=== PATIENT | male | born 1965 | race Caucasian/White ===

== ENCOUNTER 2019-04-23 22:59 | Emergency (ER) | payer OTHER, SELFPAY ==
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
[2019-04-23 23:13] VITALS: BP 104/93; PULSE 100; RESP 16; TEMP 36.3; O2SAT 96
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
[2019-04-23] MEDS: DIAZEPAM 5 MG TABLET PO (23:20)
[2019-04-24 00:20] VITALS: BP 134/89; PULSE 93; RESP 18; TEMP 36.2; O2SAT 98
== END 2019-04-24 00:23 | disposition home or self-care (01) ==
PROVIDERS: Emergency Provider Nurse Practitioner; PCP Chiropractor
DX: S13.4XXA Sprain of ligaments of cervical spine, initial encounter (principal); M25.531 Pain in right wrist; M25.532 Pain in left wrist; R07.81 Pleurodynia; G89.29 Other chronic pain; J45.909 Unspecified asthma, uncomplicated; J44.9 Chronic obstructive pulmonary disease, unspecified; K21.9 Gastro-esophageal reflux disease without esophagitis; Z87.442 Personal history of urinary calculi; G47.30 Sleep apnea, unspecified; V49.40XA Driver injured in collision with unspecified motor vehicles in traffic accident, initial encounter
CPT/HCPCS: 71045; 71101; 72125; 73110; 99284; A9270

== ENCOUNTER 2019-05-01 19:55 | Emergency (ER) | payer MEDICARE, MEDICAID, SELFPAY ==
[2019-05-01] VITALS (8 sets, daily range): BP systolic 114–155; BP diastolic 73–95; PULSE 88–101; RESP 14–18; TEMP 35.8; O2SAT 93–97
--- NOTE | ~2019-05-01 | XR_ITS ---
EXAMINATION: XR chest 1V portable DATE: 05/01/2019 21:56 INDICATION: Cough and shortness of breath. TECHNIQUE: frontal view of the chest was obtained. COMPARISON: Chest radiograph dated 04/23/2019 FINDINGS: The lungs remain clear with no focal airspace opacities, pulmonary edema, pleural effusion or pneumot horax. The cardiomediastinal silhouette is normal. Visualized bones and soft tissues are unremarkable . IMPRESSION: 1. No acute cardiopulmonary disease. Reviewed, dictated and finalized at location A. AUTHOR
--- NOTE | 2019-05-01 21:11 | ECG_ITS ---
Measurements Intervals [place] Rate: 97 P: 44 [place]: 144 QRS: -9 QRSD: 93 T: 43 QT: 375 QTc: 478 Interpretive Statements SINUS RHYTHM ATRIAL PREMATURE COMPLEXES BORDERLINE T WAVE ABNORMALITY- INFERIOR LEADS BORDERLINE ECG Electronically Signed On 05-02-2019 6:58:55 RETAIL SALES REPRESENTATIVE by Laith Suazo D.O.
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
[2019-05-01 21:43] LABS: Basophils Absolute Auto 0.1 K/mm3 (0.0-0.1); Basophils Percent Auto 0.7 % (0.2-1.2); Eosinophils Absolute Auto 0.5 K/mm3 (0-0.3); Hematocrit 45.7 % (42.0-52.0); Hemoglobin 15.4 g/dL (14.0-18.0); Immature Granulocyte Absolute 0.11 K/mm3 (0.00-0.031); Immature Granulocyte Percent A 0.7 % (0-0.5); Lymphocytes Absolute Auto 1.22 K/mm3 (0.9-3.2); Mean Corpuscular HGB Conc 33.7 g/dl (32-36); Mean Corpuscular Hemoglobin 29.3 pg (26-34); Mean Platelet Volume 11.4 fl (7.4-10.4); Monocytes Absolute Auto 1.2 K/mm3 (0.1-0.6); Monocytes Percent Auto 7.5 % (2.6-8.5); Neutrophils Absolute Auto 12.3 K/mm3 (1.3-6.7); Neutrophils Percent Auto 80.1 % (45.5-73.1); Platelet Count Result 250 k/mm3 (150-375); Red Blood Count 5.25 M/mm3 (4.6-6.20); Red Cell Distribution Width 13.5 % (11.5-14.5); White Blood Count 15.3 K/mm3 (4.5-10.0)
[2019-05-01] MEDS: METOCLOPRAMIDE HCL INJ 10 MG/2 ML VIAL IV PUSH (21:44)
[2019-05-01] MEDS: HYDROMORPHONE HCL 1 MG/ML INJ 0.5 MG IV PUSH (21:45)
[2019-05-01] MEDS: SODIUM CHLORIDE 0.9% IV 1,000 ML 999 ML IV CONT (21:47)
[2019-05-01 21:56] LABS: Alanine Aminotransferase 35 U/L (4-50); Albumin Level 4.2 g/dL (3.5-5.1); Alkaline Phosphatase 82 U/L (38-126); Aspartate Amino Transferase 24 U/L (17-59); Bilirubin,Total 0.4 mg/dL (0.2-1.3); Blood Urea Nitrogen 10 mg/dL (9-20); Calcium 9.1 mg/dL (8.4-10.2); Carbon Dioxide 27 mmol/L (22-30); Chloride 102 mmol/L (98-107); Estimated CRCL calculation 114 ml/min; Estimated Glomerular Filt Rate > 60; Glucose 106 mg/dL (75-110); Potassium 3.7 mmol/L (3.4-5.0); Sodium 143 mmol/L (137-145)
[2019-05-01 22:32] LABS: Alveolar/Arterial O2 Gradient 49.1 mmHg; Base Excess ABG -0.8 mEq/l (+/-2.0); Fractional Inspired Oxygen 21 %; HCO3 ABG 22.7 mEq/l (22.0-26.0); Oxygen Content ABG 19.9 %vol (16.0-22.0); Oxygen Saturation ABG 91.8 % (95.0-100.0); Oxyhemoglobin 90.9 % THb (90.0-100.0); PCO2 ABG 34.5 mmHg (35.0-45.0); PO2 ABG 59.3 mmHg (80.0-100.0); PO2 FiO2 Ratio Arterial Blood 2.82 %; Total Hemoglobin 15.6 g/dL (12.0-18.0); pH ABG 7.436 (7.350-7.450)
[2019-05-01 22:34] LABS: Device ROOM AIR; Modified Allen's Test Pass; Site Drawn LEFT RADIAL
[2019-05-01] MEDS: methylPREDNISolone SOD SUCC 125 MG VIAL IV PUSH (22:39)
[2019-05-01] MEDS: IPRATROPIUM BR 0.02% INH SOLN 0.5 MG/2.5 ML VIAL INHALATION (22:41)
[2019-05-01] MEDS: ALBUTEROL SULFATE NEB 2.5 MG/0.5 ML INH 5 MG INHALATION ×2 (22:41→23:38)
[2019-05-02 00:19] VITALS: BP 142/99; PULSE 92; RESP 18; O2SAT 100
== END 2019-05-02 00:21 | disposition home or self-care (01) ==
PROVIDERS: Emergency Provider Emergency Medicine; PCP Chiropractor
DX: J44.1 Chronic obstructive pulmonary disease with (acute) exacerbation (principal); M54.9 Dorsalgia, unspecified; M54.2 Cervicalgia; G89.29 Other chronic pain; K21.9 Gastro-esophageal reflux disease without esophagitis; Z87.442 Personal history of urinary calculi; G47.30 Sleep apnea, unspecified
CPT/HCPCS: 36415; 36600; 71045; 80053; 82805; 85025; 87804; 93005; 94640; 96361; 96374; 96375; 99284; J1170; J1200; J2765; J2930; J7030

== ENCOUNTER 2019-05-15 12:50 | Outpatient (CLI) | payer MEDICARE, MEDICAID, SELFPAY ==
--- NOTE | ~2019-05-15 | MR_ITS ---
EXAMINATION: MR lumbar spine wo con DATE: 05/15/2019 13:53 INDICATION: Lumbar radiculopathy. TECHNIQUE: Magnetic resonance imaging (MRI) of the lumbar spine was performed without intravenous con trast. Sequences included sagittal T2-weighted FSE, sagittal T2-weighted FS FSE, sagittal T1-weighted FSE, and axial T2-weighted FSE. COMPARISON: Lumbar spine MRI 01/19/2018 FINDINGS: There is 10 degrees levoscoliosis of lumbar spine. There is severely decreased disc height at L2-L3 with chronic height loss of L2 inferior endplate and L3 superior endplate. The distal spinal cord signal intensity is normal. The conus medullaris is at L1. The following disc levels are specif ically discussed: L1-L2: There is a left foraminal protrusion. There is mild bilateral facet joint osteoarthritis. Ther e is mild left neural foraminal stenosis. There is no central canal stenosis. L2-L3: The disc is bulging and has an annular fissure. There is mild bilateral facet joint osteoarthr itis. There is mild right and moderate left neural foraminal stenosis. There is mild central canal st enosis. L3-L4: The disc is mildly bulging. There is mild bilateral facet joint osteoarthritis. There is mild bilateral neural foraminal stenosis. There is no central canal stenosis. L4-L5: The disc is mildly bulging. There is mild bilateral facet joint osteoarthritis. There is mild bilateral neural foraminal stenosis. There is no central canal stenosis. L5-S1: There is a central protrusion. There is mild bilateral facet joint osteoarthritis. There is no neural foraminal stenosis. There is no central canal stenosis. IMPRESSION: 1. Severe spondylosis at L2-L3, stable from 01/19/2018. 2. Lumbar levoscoliosis. Reviewed, dictated and finalized at location A. NG STONE INSTALLER
--- NOTE | ~2019-05-15 | MR_ITS ---
EXAMINATION: MR cervical spine wo con EXAM DATE: 05/15/2019 13:53 INDICATION: Cervical spondylosis. TECHNIQUE: Multi-sequential, multiplanar MR images of the cervical spine were obtained without contra st. Axial T2, axial T2 MERGE sequence. Sagittal T1, T2, T2 fat saturation images also obtained. Th ere is no prior study for comparison. FINDINGS: There is moderate to severe disc disease at C5-6 and C6-7, moderate at C7-T1, mild at C3 4 -5. The spinal cord signal intensity and intrinsic morphology is normal. Cervicomedullary junction is normal in appearance. The vertebral bodies are aligned in the AP dimension. Paraspinal soft tissue i s unremarkable. Level by level evaluation: C2-C3: Disc does not extend beyond the endplate margin. Uncovertebral joint arthropathy: Mild left. Facet joint arthropathy: Mild to moderate right, mild left. Neural foraminal stenosis: No stenosis. Central canal stenosis: No stenosis. C3-C4: There is a minimal diffuse disc bulge. Uncovertebral joint arthropathy: Mild to moderate bilateral. Facet joint arthropathy: Moderate bilateral. Neural foraminal stenosis: Moderate right, mild to moderate left. Central canal stenosis: No stenosis. C4-C5: There is a mild diffuse disc bulge. Uncovertebral joint arthropathy: Mild bilateral. Facet joint arthropathy: Mild to moderate bilateral. Neural foraminal stenosis: No stenosis. Central canal stenosis: No stenosis. C5-C6: There is a mild diffuse disc bulge. Uncovertebral joint arthropathy: Moderate bilateral. Facet joint arthropathy: Mild to moderate. Neural foraminal stenosis: Moderate to severe bilateral. Central canal stenosis: Mild. C6-C7: There is a mild diffuse disc bulge. Uncovertebral joint arthropathy: Moderate bilateral. Facet joint arthropathy: Mild to moderate bilateral. Neural foraminal stenosis: Moderate left, mild right. Central canal stenosis: Mild. C7-T1: There is a mild diffuse disc bulge. Uncovertebral joint arthropathy: Mild bilateral. Facet joint arthropathy: Mild to moderate right, mild left. Neural foraminal stenosis: Mild to moderate right, no left. Central canal stenosis: Mild. Only minimal progression in spondylosis compared to prior study. IMPRESSION: 1. Overall moderate lower cervical spondylosis as above. Reviewed, dictated and finalized at location A. ERS' COMPENSATION CLAIMS SUPERVISOR
== END 2019-05-15 12:51 | disposition home or self-care (01) ==
PROVIDERS: PCP Chiropractor; Visit Provider Pain Medicine Pain Medicine
DX: M47.26 Other spondylosis with radiculopathy, lumbar region (principal); M41.86 Other forms of scoliosis, lumbar region; M47.812 Spondylosis without myelopathy or radiculopathy, cervical region
CPT/HCPCS: 72141; 72148

== ENCOUNTER 2019-09-20 20:29 | Emergency (ER) | payer MEDICARE, MEDICAID, SELFPAY ==
[2019-09-20 20:29] VITALS: BP 134/97; PULSE 78; RESP 18; TEMP 36.9; O2SAT 99
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
--- NOTE | 2019-09-20 20:48 | ECG_ITS ---
Measurements Intervals [place] Rate: 76 P: 33 [place]: 155 QRS: -12 QRSD: 93 T: 16 QT: 407 QTc: 459 Interpretive Statements SINUS RHYTHM BORDERLINE T WAVE ABNORMALITY- INFERIOR LEADS BORDERLINE ECG Electronically Signed On 09-21-2019 7:53:09 CDT by Laith Suazo D.O.
[2019-09-20] MEDS: ONDANSETRON INJ 4 MG/2 ML VIAL IV PUSH (20:58)
[2019-09-20] MEDS: SODIUM CHLORIDE 0.9% IV 1,000 ML 999 ML IV CONT (20:59)
[2019-09-20 21:07] LABS: Basophils Absolute Auto 0.1 K/mm3 (0.0-0.1); Basophils Percent Auto 0.5 % (0.2-1.2); Eosinophils Absolute Auto 0.2 K/mm3 (0-0.3); Eosinophils Percent Auto 1.7 % (0-4.4); Hematocrit 50.3 % (42.0-52.0); Hemoglobin 16.9 g/dL (14.0-18.0); Immature Granulocyte Absolute 0.09 K/mm3 (0.00-0.031); Immature Granulocyte Percent A 0.8 % (0-0.5); Lymphocytes Absolute Auto 2.19 K/mm3 (0.9-3.2); Lymphocytes Percent Auto 19.9 % (18.3-44.2); Mean Corpuscular HGB Conc 33.6 g/dl (32-36); Mean Corpuscular Hemoglobin 29.5 pg (26-34); Mean Corpuscular Volume 87.8 fl (80-100); Monocytes Percent Auto 9.4 % (2.6-8.5); Neutrophils Absolute Auto 7.4 K/mm3 (1.3-6.7); Neutrophils Percent Auto 67.7 % (45.5-73.1); Platelet Count Result 275 k/mm3 (150-375); Red Blood Count 5.73 M/mm3 (4.6-6.20); Red Cell Distribution Width 13.6 % (11.5-14.5)
[2019-09-20 21:17] LABS: Prothrombin Time 12.5 Seconds (11.1-14.7)
[2019-09-20 21:18] LABS: Partial Thromboplastin Time 28.2 SECONDS (22.3-36.8)
[2019-09-20 21:20] LABS: Alanine Aminotransferase 32 U/L (4-50); Albumin Level 4.4 g/dL (3.5-5.1); Alkaline Phosphatase 73 U/L (38-126); Aspartate Amino Transferase 25 U/L (17-59); Bilirubin,Total 0.5 mg/dL (0.2-1.3); Blood Urea Nitrogen 12 mg/dL (9-20); Calcium 9.1 mg/dL (8.4-10.2); Carbon Dioxide 32 mmol/L (22-30); Chloride 101 mmol/L (98-107); Estimated CRCL calculation 104 ml/min; Estimated Glomerular Filt Rate > 60; Glucose 117 mg/dL (75-110); Potassium 3.5 mmol/L (3.4-5.0); Sodium 139 mmol/L (137-145)
[2019-09-20] MEDS: CYCLOBENZAPRINE HCL 10 MG TABLET PO (22:05)
[2019-09-20 22:21] VITALS: BP 130/76; PULSE 58; RESP 18; O2SAT 98
[2019-09-20 22:33] VITALS: BP 134/81; PULSE 58; RESP 16; TEMP 36.9; O2SAT 98
== END 2019-09-20 22:34 | disposition home or self-care (01) ==
PROVIDERS: Emergency Provider Nurse Practitioner Family; PCP Chiropractor
DX: G43.009 Migraine without aura, not intractable, without status migrainosus (principal); G44.209 Tension-type headache, unspecified, not intractable; M54.2 Cervicalgia; G89.29 Other chronic pain; K21.9 Gastro-esophageal reflux disease without esophagitis; J44.9 Chronic obstructive pulmonary disease, unspecified; Z87.442 Personal history of urinary calculi; G47.30 Sleep apnea, unspecified; R94.31 Abnormal electrocardiogram [ECG] [EKG]; R03.0 Elevated blood-pressure reading, without diagnosis of hypertension
CPT/HCPCS: 36415; 80053; 85025; 85610; 85730; 93005; 96361; 96365; 96375; 99284; A9270; J0131; J1200; J2405; J7030

== ENCOUNTER 2020-03-27 13:24 | Emergency (ER) | payer MEDICARE, MEDICAID, SELFPAY ==
--- NOTE | ~2020-03-27 | CT_ITS ---
EXAMINATION: CT brain wo con INDICATION: Generalized headache, hypertension COMPARISON: 05/15/2017 TECHNIQUE: Standard unenhanced head CT. The dose-length product (DLP) was 681.00 mGy-cm. The mA was a djusted according to patient size. Iterative reconstruction technique was employed. FINDINGS: There is no intracranial hemorrhage, acute infarction, or abnormal mass lesion. The ventric les are normal. There is no abnormal mass effect or midline shift. The torres-white matter differentiat ion is normal. The basal cisterns are patent. The orbits are normal. There is mild mucosal thickening of the paranasal sinuses. IMPRESSION: 1. No acute intracranial abnormality. Reviewed, dictated and finalized at location A. OUTPATIENT SURGERY
[2020-03-27 13:43] VITALS: BP 161/118; PULSE 87; RESP 16; TEMP 36.1; O2SAT 99
--- NOTE | 2020-03-27 15:08 | ED.HA ---
HPI - Headache General Chief Complaint: Headache Stated Complaint: ELEVATED BP 160/111 RODRIGUEZ Time Seen by Provider: 03/27/20 14:52 Source: patient Mode of arrival: ambulatory Limitations: no limitations History of Present Illness HPI Narrative: Patient is a 54-year-old male who presents complaining of headache, chest tightness and elevated blood pressure. Patient reports blood pressure has been elevated on last week with an average reading of 140/110. He denies a history of hypertension is not on blood pressure medicine at this time. He denies shortness of breath. He reports a history of migraines and states that he has had headaches for the past 6 years. He reports they never fully go away, however this last headache has increased over the past week. MD elicited complaint: headache Related Data Home Medications Medication Instructions Recorded Confirmed budesonide-formoterol [Symbicort] INHALATION 04/23/19 hydrocodone-acetaminophen TID 04/23/19 naproxen PO 04/23/19 omeprazole 04/23/19 promethazine 04/23/19 albuterol sulfate [Ventolin HFA] INHALATION 05/01/19 05/01/19 Allergies Allergy/AdvReac Type Severity Reaction Status Date / Time fentanyl Allergy Unknown Unknown Verified 05/01/19 21:43 ketorolac Allergy Unknown vomiting Verified 05/01/19 21:43 KETOROLAC TROMETHAMINE Allergy Unknown RASH* SEE Uncoded 05/01/19 21:43 NOTE Review of Systems Review of Systems: Narrative: CONSTITUTIONAL: Denies fever, chills, or sweats. EYES: Denies visual changes, redness, or discharge. ENT: Denies rhinorrhea, congestion, sore throat, or otalgia. CARDIOVASCULAR: Denies chest pain, palpitations, or edema. RESPIRATORY: Denies cough or dyspnea. GASTROINTESTINAL: Denies abdominal pain, nausea, vomiting, or diarrhea. GENITOURINARY: Denies dysuria or hematuria. SKIN: Denies rash or itching. MUSCULOSKELETAL: Denies back pain, joint pain, or myalgia. NEUROLOGIC: Reports headache, denies numbness, dizziness, or weakness. PSYCHIATRIC: Denies anxiety or depression. [facility] Past Medical History Medical History (Updated 03/27/20 @ 19:11 by ELLY Medrano) Asthma per patient Chronic back pain per patient Chronic neck pain per patient Chronic prescription opiate use pt reports [place] 7.5 mg TID for chronic pain COPD (chronic obstructive pulmonary disease) GERD (gastroesophageal reflux disease) Kidney stone Migraine headache Sleep apnea Surgical History Surgical History H/O lithotripsy Family History Family History Sibling Family history of gastrointestinal disorder Family history of chronic obstructive pulmonary disease Other Family history of kidney stones Family history of malignant neoplasm Social History Social History Smoking status: Never smoker Smoking end date: 03/26/92 Alcohol intake: current Substance use: never Gender identity (if verbalized by the patient): Male Exam Narrative: Exam Narrative: GENERAL: Well-appearing, well-nourished, and in no acute distress. HEAD: Normocephalic, atraumatic. EYES: EOMI. No redness or drainage. ENT: Mucous membranes pink and moist. CHEST: No respiratory distress. HEART: Regular rate and rhythm. EXTREMITIES: Normal range of motion. No edema. SKIN: Warm, dry, no rash. NEURO: No focal deficits. Alert and oriented x3. Gait steady. PSYCH: Normal affect. No signs of depression or anxiety. Course Vital Signs Vital signs: Vital Signs Temperature 36.1 C L 03/27/20 13:43 Pulse Rate 87 03/27/20 13:43 Respiratory Rate 16 03/27/20 13:43 Blood Pressure 161/118 H 03/27/20 13:43 Pulse Oximetry 99 03/27/20 13:43 Temperature 36.1 C L 03/27/20 13:43 Pulse Rate 79 03/27/20 18:54 Respiratory Rate 20 03/27/20 18:54 Blood Pressure 152/79 H 03/27/20
[2020-03-27 15:15] VITALS: BP 131/115; PULSE 80; RESP 20; O2SAT 99
--- NOTE | 2020-03-27 15:22 | ECG_ITS ---
Measurements Intervals [place] Rate: 79 P: 11 [place]: 157 QRS: -19 QRSD: 96 T: 15 QT: 403 QTc: 465 Interpretive Statements SINUS RHYTHM ATRIAL PREMATURE COMPLEX BORDERLINE ECG Electronically Signed On 03-28-2020 7:58:09 LOT WORKER by Laith Suazo D.O.
[2020-03-27] MEDS: diphenhydrAMINE HCl INJ 50 MG/ML VIAL IV PUSH (15:54)
[2020-03-27] MEDS: LORazepam INJ (*CRX) 2 MG/ML VIAL 1 MG IV PUSH (15:54)
[2020-03-27] MEDS: METOCLOPRAMIDE HCL INJ 10 MG/2 ML VIAL IV PUSH (15:54)
[2020-03-27] MEDS: SODIUM CHLORIDE 0.9% IV 1,000 ML 999 ML IV CONT (15:58)
[2020-03-27 16:09] LABS: Troponin I < 0.012 ng/mL (0.000-0.034)
[2020-03-27 16:40] VITALS: BP 152/96; PULSE 70; RESP 20; O2SAT 99
[2020-03-27 17:25] VITALS: BP 137/90; PULSE 72; RESP 20; O2SAT 97
[2020-03-27 18:14] LABS: Troponin I < 0.012 ng/mL (0.000-0.034)
[2020-03-27 18:54] VITALS: BP 152/79; PULSE 79; RESP 20; O2SAT 95
== END 2020-03-27 19:34 | disposition home or self-care (01) ==
PROVIDERS: Emergency Provider Nurse Practitioner; PCP Chiropractor
DX: R51.9 Headache, unspecified (principal); I10 Essential (primary) hypertension; J44.9 Chronic obstructive pulmonary disease, unspecified; Z87.442 Personal history of urinary calculi; K21.9 Gastro-esophageal reflux disease without esophagitis; G47.30 Sleep apnea, unspecified
CPT/HCPCS: 36415; 70450; 84484; 93005; 96361; 96365; 96375; 99284; J0131; J1200; J2060; J2765; J7030

== ENCOUNTER 2020-04-04 07:43 | Outpatient (CLI) | payer MEDICARE, MEDICAID, SELFPAY ==
--- NOTE | ~2020-04-04 | XR_ITS ---
EXAMINATION: XR chest 2V 04/04/2020 08:01 INDICATION: Chest congestion PROCEDURE: 2 view chest COMPARISON: Comparison to multiple prior studies sequentially, with oldest reviewed study dated 05/15. FINDINGS: The lungs are clear. The cardiomediastinal silhouette is within normal limits. There are no pleural effusions. There is no pneumothorax suspected. IMPRESSION: 1: NO ACUTE CARDIOPULMONARY DISEASE. Reviewed, dictated and finalized at location A. ROAD FIRER
--- NOTE | ~2020-04-04 | US_ITS ---
EXAMINATION:US venous doppler LE BI INDICATION:Leg edema TECHNIQUE: Multiple grayscale, color flow and Doppler images of the right and left lower extremity de ep venous systems were obtained and reviewed. COMPARISON:No prior studies for comparison. FINDINGS: The common femoral, superficial femoral and popliteal veins demonstrate normal respiratory variation, augmentation and compressibility. Color flow is also seen within the posterior tibial, pe roneal, greater saphenous and profunda veins. IMPRESSION: 1: No lower extremity deep venous thrombosis. Reviewed, dictated and finalized at location A. ICATION OPERATOR
== END 2020-04-04 07:44 | disposition home or self-care (01) ==
PROVIDERS: PCP Chiropractor; Visit Provider Chiropractor
DX: R60.0 Localized edema (principal); I82.409 Acute embolism and thrombosis of unspecified deep veins of unspecified lower extremity
CPT/HCPCS: 71046; 93970

== ENCOUNTER 2020-08-08 21:37 | Emergency (ER) | payer MEDICARE, MEDICAID, SELFPAY ==
--- NOTE | ~2020-08-08 | CT_ITS ---
EXAMINATION: CT abdomen pelvis w con DATE: 08/08/2020 22:51 INDICATION: Right lower quadrant abdominal pain. TECHNIQUE: Computed tomography (CT) of the abdomen and pelvis was performed with 100 mL Omnipaque 350 intravenous contrast. Automated exposure control and iterative reconstruction technique were employe d. The dose-length product was 1399.21 mGy-cm. COMPARISON: CT abdomen and pelvis 10/18/2018 FINDINGS: The visualized portions of the lung bases demonstrate minimal atelectasis on the right. No pleural effusion. The heart size is normal. No pericardial effusion. There is diffuse hepatic steatos is. The gallbladder, spleen, pancreas, and adrenal glands are normal. There are cysts in the kidneys measuring up to 2.7 cm on the right. There is a 5 mm stone in right kidney. There is a 6 mm stone in left kidney. There is an umbilical hernia containing fat. The prostate is mildly enlarged. There is d iverticulosis of the colon without evidence of diverticulitis. The appendix is normal. There are no p athologically enlarged lymph nodes. There is no free intraperitoneal fluid. There is severe lumbar sp ondylosis. IMPRESSION: 1. Diffuse hepatic steatosis. 2. Umbilical hernia containing fat. 3. Bilateral nonobstructing kidney stones. Reviewed, dictated and finalized at location A.
[2020-08-08 21:40] VITALS: BP 147/107; PULSE 100; RESP 20; TEMP 36.4; O2SAT 99
[2020-08-08 22:10] LABS: Basophils Absolute Auto 0.1 K/mm3 (0.0-0.1); Basophils Percent Auto 0.6 % (0.2-1.2); Eosinophils Absolute Auto 0.3 K/mm3 (0-0.3); Eosinophils Percent Auto 1.8 % (0-4.4); Hematocrit 50.9 % (42.0-52.0); Hemoglobin 17.3 g/dL (14.0-18.0); Immature Granulocyte Absolute 0.24 K/mm3 (0.00-0.031); Immature Granulocyte Percent A 1.7 % (0-0.5); Lymphocytes Absolute Auto 1.98 K/mm3 (0.9-3.2); Lymphocytes Percent Auto 14.3 % (18.3-44.2); Mean Corpuscular Hemoglobin 28.9 pg (26-34); Mean Platelet Volume 11.3 fl (7.4-10.4); Monocytes Absolute Auto 1.1 K/mm3 (0.1-0.6); Monocytes Percent Auto 7.7 % (2.6-8.5); Neutrophils Absolute Auto 10.2 K/mm3 (1.3-6.7); Neutrophils Percent Auto 73.9 % (45.5-73.1); Platelet Count Result 304 k/mm3 (150-375); Red Blood Count 5.99 M/mm3 (4.6-6.20); Red Cell Distribution Width 12.8 % (11.5-14.5); White Blood Count 13.8 K/mm3 (4.5-10.0)
[2020-08-08 22:13] LABS: Add Urine Microscopic? YES; Appearance Urine Cloudy (Clear); Bacteria Urine Trace /hpf; Bilirubin Urine Negative (Negative); Blood Urine 1+ (Negative); Color Urine Yellow (Yellow); Glucose Urine UA 2+ mg/dL (Negative); Ketones Urine Trace mg/dL (Negative); Leukocyte Esterase Ur Negative LEU/UL (Negative); Mucus Urine Few /lpf; Nitrate Urine Negative (Negative); Protein Urine 2+ mg/dL (Negative); Specific Grav Ur 1.028 (1.001-1.035); Squamous Epithelial Cell Urine Rare /hpf (Few); Urobilinogen Urine Negative mg/dL (<2.0)
[2020-08-08 22:21] LABS: Alanine Aminotransferase 45 U/L (4-50); Albumin Level 4.4 g/dL (3.5-5.1); Alkaline Phosphatase 96 U/L (38-126); Anion Gap 7 mmol/L (8-16); Aspartate Amino Transferase 32 U/L (17-59); Bilirubin,Total 0.5 mg/dL (0.2-1.3); Blood Urea Nitrogen 16 mg/dL (9-20); Calcium 9.2 mg/dL (8.4-10.2); Carbon Dioxide 29 mmol/L (22-30); Chloride 103 mmol/L (98-107); Estimated CRCL calculation 115 ml/min; Estimated Glomerular Filt Rate > 60; Glucose 208 mg/dL (75-110); Lipase 260 U/L (23-300); Potassium 3.7 mmol/L (3.4-5.0); Sodium 139 mmol/L (137-145)
[2020-08-08] MEDS: ONDANSETRON INJ 4 MG/2 ML VIAL IV PUSH (22:24)
[2020-08-08] MEDS: SODIUM CHLORIDE 0.9% IV 1,000 ML 999 ML IV CONT (22:26)
[2020-08-08] MEDS: MORPHINE SULFATE (*CRX) 4 MG/ML INJ IV PUSH (22:26)
[2020-08-08] MEDS: HYDROmorphone HCL INJ (*CRX) 1 MG/ML SYR IV PUSH (23:38)
[2020-08-09] MEDS: ONDANSETRON INJ 4 MG/2 ML VIAL IV PUSH (00:08)
[2020-08-09 00:11] VITALS: BP 149/111; PULSE 96; RESP 20; O2SAT 97
[2020-08-09 01:00] VITALS: BP 135/94; PULSE 95; RESP 18; O2SAT 99
[2020-08-09] MEDS: HYDROmorphone HCL INJ (*CRX) 1 MG/ML SYR IV PUSH (01:10)
--- NOTE | 2020-08-09 01:56 | ED.GENADULT ---
HPI - General Adult General Chief complaint: Abdominal Pain Stated complaint: abdominal pain Time Seen by Provider: 08/08/20 21:55 History of Present Illness HPI narrative: Patient 54-year-old gentleman who presents the emergency department with chief complaint of abdominal pain. The patient reports that he started having severe pain throughout his abdomen more in the epigastric and right upper quadrant. The patient reports the pain radiated to his back reports not improved by anything nor is worsened by anything. The patient reports he is unable to get comfortable in any position reports that he does have prior history of kidney stones. Patient reports this feels different for whenever he had his last episode of kidney stones. Patient denies fever denies chills. Related Data Home Medications Medication Instructions Recorded Confirmed budesonide-formoterol [Symbicort] INHALATION 04/23/19 hydrocodone-acetaminophen TID 04/23/19 naproxen PO 04/23/19 omeprazole 04/23/19 promethazine 04/23/19 albuterol sulfate [Ventolin HFA] INHALATION 05/01/19 05/01/19 Allergies Allergy/AdvReac Type Severity Reaction Status Date / Time fentanyl Allergy Unknown Unknown Verified 08/08/20 22:02 ketorolac Allergy Unknown vomiting Verified 08/08/20 22:02 KETOROLAC TROMETHAMINE Allergy Unknown RASH* SEE Uncoded 08/08/20 22:02 NOTE Review of Systems Review of Systems: Narrative: A 10 system review of systems was completed on the patient and is negative except for what is stated in the HPI. Nursing and ancillary documentation was reviewed. [facility] Past Medical History Medical History (Updated 08/09/20 @ 01:57 by Rinku Zapien MD) Asthma per patient Chronic back pain per patient Chronic neck pain per patient Chronic prescription opiate use pt reports [place] 7.5 mg TID for chronic pain COPD (chronic obstructive pulmonary disease) GERD (gastroesophageal reflux disease) Kidney stone Migraine headache Sleep apnea Surgical History Surgical History H/O lithotripsy Family History Family History Sibling Family history of gastrointestinal disorder Family history of chronic obstructive pulmonary disease Other Family history of kidney stones Family history of malignant neoplasm Social History Social History Smoking status: Never smoker Smoking end date: 03/26/92 Alcohol intake: current Substance use: never Gender identity (if verbalized by the patient): Male Exam Narrative: Exam Narrative: GENERAL: Well-appearing, well-nourished, and in no acute distress. HEAD: Normocephalic, atraumatic. EYES: PERRLA and EOMI. ENT: Nares clear, no rhinorrhea or epistaxis. Mucous membranes moist. NECK: Supple. CHEST: Clear to auscultation. No respiratory distress. HEART: Regular rate and rhythm. No murmur heard. Normal peripheral pulses. ABDOMEN: Soft, diffuse mild tenderness to palpation, nondistended, normal active bowel sounds. EXTREMITIES: Normal range of motion. No edema. SKIN: Warm, dry, no rash. NEURO: No focal deficits. Alert and oriented x3. PSYCH: Normal mood and affect. Course Course Emergency Course: CT scan showed evidence of possible colitis to go in the right colon. Given the patient is tender on that side the patient will be treated empirically with antibiotics. Vital Signs Vital signs: Vital Signs Temperature 36.4 C L 08/08/20 21:40 Pulse Rate 100 08/08/20 21:40 Respiratory Rate 20 08/08/20 21:40 Blood Pressure 147/107 H 08/08/20 21:40 Pulse Oximetry 99 08/08/20 21:40 Temperature 36.4 C L 08/08/20 21:40 Pulse Rate 95 08/09/20 01:00 Respiratory Rate 18 08/09/20 01:00 Blood Pressure 135/94 H 08/09/20 01:00 Pulse Oximetry 99 08/09/20 01:00 Medical [facility]ene[facility]
[2020-08-09] MEDS: metroNIDAZOLE 250 MG TABLET 500 MG PO (02:29)
[2020-08-09] MEDS: CIPROFLOXACIN 500 MG TAB PO (02:29)
[2020-08-09 02:34] VITALS: BP 149/92; PULSE 92; RESP 16; O2SAT 100
== END 2020-08-09 02:37 | disposition home or self-care (01) ==
PROVIDERS: Emergency Provider Emergency Medicine
DX: K52.9 Noninfective gastroenteritis and colitis, unspecified (principal); R10.84 Generalized abdominal pain; G89.29 Other chronic pain; M54.9 Dorsalgia, unspecified; J44.9 Chronic obstructive pulmonary disease, unspecified; K21.9 Gastro-esophageal reflux disease without esophagitis; Z87.442 Personal history of urinary calculi; G47.30 Sleep apnea, unspecified
CPT/HCPCS: 36415; 74177; 80053; 81001; 83690; 85025; 87086; 96361; 96374; 96375; 96376; 99284; A9270; J1170; J2270; J2405; J7030; Q9967

== ENCOUNTER 2020-08-09 21:35 | Emergency (ER) | payer MEDICARE, MEDICAID, SELFPAY ==
--- NOTE | ~2020-08-09 | CT_ITS ---
EXAMINATION: CT abdomen pelvis w con DATE: 08/10/2020 00:26 INDICATION: Upper abdominal pain. TECHNIQUE: Computed tomography (CT) of the abdomen and pelvis was performed with 100 mL Omnipaque 350 intravenous contrast. Automated exposure control and iterative reconstruction technique were employe d. The dose-length product was 1565.39 mGy-cm. COMPARISON: CT abdomen and pelvis 08/08/2020, CTA 08/10/2020 FINDINGS: The visualized portions of the lung bases demonstrate mild atelectasis. No pleural effusion . The heart size is normal. No pericardial effusion. There is diffuse hepatic steatosis. There is con trast in the gallbladder, which is normal in size. The spleen, pancreas, and adrenal glands are yoko l. There are cysts in the kidneys measuring up to 2.7 cm on the right. There is a 5 mm stone in right kidney. There is a 6 mm stone in left kidney. There is an umbilical hernia containing fat. The prost ate is mildly enlarged. There is diverticulosis of the colon without evidence of diverticulitis. The appendix is normal. There is fat stranding around the superior mesenteric artery, consistent with inf lammation. The superior mesenteric artery is mildly enlarged to 13 mm and demonstrates filling defect s, consistent with dissection. There are no pathologically enlarged lymph nodes. There is no free int raperitoneal fluid. There is lumbar levoscoliosis and severe spondylosis. IMPRESSION: 1. 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 2. Umbilical hernia containing fat. Reviewed, dictated and finalized at location A. IMPRESSION: 1. 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 2. Umbilical hernia containing fat.
--- NOTE | ~2020-08-09 | CT_ITS ---
EXAMINATION: CTA abdomen pelvis DATE: 08/10/2020 02:40 INDICATION: Superior mesenteric artery dissection. Abdominal pain. TECHNIQUE: Computed tomographic angiography (CTA) of the abdomen and pelvis was performed with 100 mL Omnipaque-350 intravenous contrast. Automated exposure control and iterative reconstruction techniqu e were employed. The dose-length product was 1635.99 mGy-cm. Maximum intensity projection 3D-reconstr uctions of the aorta and other arteries were constructed by the technologist on a separate workstatio n. COMPARISON: CT abdomen and pelvis 08/10/2020 FINDINGS: The visualized portions of the lung bases demonstrate mild atelectasis. No pleural effusion . The heart size is normal. No pericardial effusion. There is diffuse hepatic steatosis. There is con trast in the gallbladder, which is normal in size. The spleen, pancreas, and adrenal glands are yoko l. There are cysts in the kidneys measuring up to 2.7 cm on the right. Contrast in the collecting sys tem obscures bilateral nonobstructing kidney stones seen on the prior imaging. There is an umbilical hernia containing fat. The prostate is mildly enlarged. There is diverticulosis of the colon without evidence of diverticulitis. There is no evidence of ischemic colitis. The appendix is normal. There i s fat stranding around the superior mesenteric artery, consistent with inflammation. There is a disse ction of superior mesenteric artery, which is mildly enlarged at 13 mm. There are no pathologically e nlarged lymph nodes. There is no free intraperitoneal fluid. There is lumbar levoscoliosis and severe spondylosis. IMPRESSION: 1. 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 2. Umbilical hernia containing fat. Reviewed, dictated and finalized at location A. IMPRESSION: 1. 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 2. Umbilical hernia containing fat.
[2020-08-09 21:41] VITALS: BP 127/100; PULSE 75; RESP 20; TEMP 36.7; O2SAT 100
[2020-08-09 22:23] LABS: Basophils Percent Auto 0.3 % (0.2-1.2); Eosinophils Absolute Auto 0.1 K/mm3 (0-0.3); Hematocrit 47.7 % (42.0-52.0); Hemoglobin 16.1 g/dL (14.0-18.0); Immature Granulocyte Absolute 0.15 K/mm3 (0.00-0.031); Immature Granulocyte Percent A 1.3 % (0-0.5); Lymphocytes Percent Auto 9.6 % (18.3-44.2); Mean Corpuscular HGB Conc 33.8 g/dl (32-36); Mean Corpuscular Hemoglobin 28.9 pg (26-34); Mean Corpuscular Volume 85.5 fl (80-100); Mean Platelet Volume 11.1 fl (7.4-10.4); Monocytes Absolute Auto 1.1 K/mm3 (0.1-0.6); Monocytes Percent Auto 9.5 % (2.6-8.5); Neutrophils Percent Auto 78.3 % (45.5-73.1); Platelet Count Result 262 k/mm3 (150-375); Red Blood Count 5.58 M/mm3 (4.6-6.20); Red Cell Distribution Width 12.8 % (11.5-14.5); White Blood Count 11.5 K/mm3 (4.5-10.0)
[2020-08-09 22:42] LABS: Alanine Aminotransferase 40 U/L (4-50); Albumin Level 4.2 g/dL (3.5-5.1); Alkaline Phosphatase 87 U/L (38-126); Anion Gap 7 mmol/L (8-16); Aspartate Amino Transferase 29 U/L (17-59); Bilirubin,Total 0.6 mg/dL (0.2-1.3); Blood Urea Nitrogen 9 mg/dL (9-20); Calcium 9.1 mg/dL (8.4-10.2); Carbon Dioxide 30 mmol/L (22-30); Chloride 100 mmol/L (98-107); Estimated CRCL calculation 129 ml/min; Estimated Glomerular Filt Rate > 60; Glucose 200 mg/dL (75-110); Lipase 538 U/L (23-300); Potassium 3.6 mmol/L (3.4-5.0); Sodium 137 mmol/L (137-145)
[2020-08-09 23:11] LABS: Add Urine Microscopic? YES; Appearance Urine Clear (Clear); Bilirubin Urine Negative (Negative); Blood Urine 2+ (Negative); Color Urine Yellow (Yellow); Glucose Urine UA 1+ mg/dL (Negative); Ketones Urine 1+ mg/dL (Negative); Leukocyte Esterase Ur Trace LEU/UL (Negative); Mucus Urine Rare /lpf; Nitrate Urine Negative (Negative); Protein Urine 2+ mg/dL (Negative); Specific Grav Ur 1.027 (1.001-1.035); Squamous Epithelial Cell Urine Rare /hpf (Few); Urobilinogen Urine Negative mg/dL (<2.0)
--- NOTE | 2020-08-09 23:12 | ECG_ITS ---
Measurements Intervals [place] Rate: 91 P: 18 NM: 146 QRS: 14 QRSD: 86 T: 30 QT: 369 QTc: 455 Interpretive Statements SINUS RHYTHM ATRIAL PREMATURE COMPLEXES BORDERLINE ECG Electronically Signed On 08-10-2020 6:38:36 CDT by Laith Suazo D.O.
--- NOTE | 2020-08-09 23:14 | ED.ABDPAIN ---
HPI - Abdominal Pain General Chief Complaint: Abdominal Pain <Eulalia Mcconnell MD - Last Filed: 08/10/20 02:44> Stated Complaint: kidney stone pain, here last night <Eulalia Mcconnell MD - Last Filed: 08/10/20 02:44> Time Seen by Provider: 08/09/20 22:57 <Eulalia Mcconnell MD - Last Filed: 08/10/20 02:44> Source: patient <Eulalia Mcconnell MD - Last Filed: 08/10/20 02:44> Mode of arrival: ambulatory <Eulalia Mcconnell MD - Last Filed: 08/10/20 02:44> Limitations: no limitations <Eulalia Mcconnell MD - Last Filed: 08/10/20 02:44> History of Present Illness HPI narrative: This is a 54 year old male with history chronic pain syndrome, kidney stones stones who presents for evaluation of abdominal pain. He states he developed upper abdominal pain and bilateral flank pain since yesterday. His pain has been constant and he reports nausea and vomiting. He was evaluated in ER yesterday for his same pain, and he was diagnosed with colitis. He was started on antibiotics and prescribed hydrocodone. He normally takes hydrocodone 7.5. He denies chest pain, sob, fever or chills. <Eulalia Mcconnell MD - Last Filed: 08/10/20 02:44> Related Data Home Medications: Home Medications Medication Instructions Recorded Confirmed budesonide-formoterol [Symbicort] INHALATION 04/23/19 hydrocodone-acetaminophen TID 04/23/19 naproxen PO 04/23/19 omeprazole 04/23/19 promethazine 04/23/19 albuterol sulfate [Ventolin HFA] INHALATION 05/01/19 05/01/19 <Eulalia Mcconnell MD - Last Filed: 08/10/20 02:44> Allergies/Adverse Reactions: Allergies Allergy/AdvReac Type Severity Reaction Status Date / Time fentanyl Allergy Unknown Unknown Verified 08/08/20 22:02 ketorolac Allergy Unknown vomiting Verified 08/08/20 22:02 KETOROLAC TROMETHAMINE Allergy Unknown RASH* SEE Uncoded 08/08/20 22:02 NOTE <Eulalia Mcconnell MD - Last Filed: 08/10/20 02:44> Review of Systems Review of Systems: All systems reviewed & are unremarkable except as noted in HPI and below <Eulalia Mcconnell MD - Last Filed: 08/10/20 02:44> [facility] Past Medical History Medical History: Medical History (Updated 08/10/20 @ 05:36 by Rinku Zapien MD) Asthma per patient Chronic back pain per patient Chronic neck pain per patient Chronic prescription opiate use pt reports [place] 7.5 mg TID for chronic pain COPD (chronic obstructive pulmonary disease) GERD (gastroesophageal reflux disease) Kidney stone Migraine headache Sleep apnea <Eulalia Mcconnell MD - Last Filed: 08/10/20 02:44> Surgical History Surgical History: Surgical History H/O lithotripsy <Eulalia Mcconnell MD - Last Filed: 08/10/20 02:44> Family History Family History: Family History Sibling Family history of gastrointestinal disorder Family history of chronic obstructive pulmonary disease Other Family history of kidney stones Family history of malignant neoplasm <Eulalia Mcconnell MD - Last Filed: 08/10/20 02:44> Social History Social History: Social History Smoking status: Never smoker Smoking end date: 03/26/92 Alcohol intake: current Substance use: never Gender identity (if verbalized by the patient): Male <Eulalia Mcconnell MD - Last Filed: 08/10/20 02:44> Exam Const: General: alert <Eulalia Mcconnell MD - Last Filed: 08/10/20 02:44> Nutritional Appearance: obese <Eulalia Mcconnell MD - Last Filed: 08/10/20 02:44> Orientation/consciousness: patient oriented x3 <Eulalia Mcconnell MD - Last Filed: 08/10/20 02:44> Other: moderate distess due to pain <Eulalia Mcconnell MD - Last Filed: 08/10/20 02:44> Neck: Neck: no lymphadenopathy <Eulalia Mcconnell MD - Last Filed: 08/10/20 02:44>
[2020-08-09] MEDS: ONDANSETRON INJ 4 MG/2 ML VIAL IV PUSH (23:18)
[2020-08-09] MEDS: HYDROmorphone HCL INJ (*CRX) 1 MG/ML SYR IV PUSH (23:18)
[2020-08-09 23:26] VITALS: BP 129/100; PULSE 87; RESP 14; O2SAT 99
[2020-08-09 23:48] VITALS: TEMP 36.7
[2020-08-10] VITALS (34 sets, daily range): BP systolic 119–155; BP diastolic 82–111; PULSE 73–92; RESP 8–26; TEMP 36.7; O2SAT 91–100
[2020-08-10] MEDS: HYDROmorphone HCL INJ (*CRX) 1 MG/ML SYR IV PUSH ×3 (00:11→05:36)
--- NOTE | 2020-08-10 00:17 | PC.NURSE ---
Patient to radiology.
[2020-08-10 02:28] LABS: Prothrombin Time 13.9 Seconds (11.1-14.7)
[2020-08-10 02:29] LABS: Lactic Acid Reflex 1.3 mmol/L (0.7-2.1); Partial Thromboplastin Time 23.3 SECONDS (22.3-36.8)
[2020-08-10] MEDS: ONDANSETRON INJ 4 MG/2 ML VIAL IV PUSH (02:52)
[2020-08-10] MEDS: SODIUM CHLORIDE 0.9% IV 1,000 ML 999 ML IV CONT (02:52)
[2020-08-10] MEDS: HEPARIN SODIUM 5,000 UNITS/ML VIAL 10000 UNITS IV PUSH (05:58)
[2020-08-10] MEDS: HEPARIN SOD/D5W 100 UNITS/ML 25,000 UNITS/250 ML BAG 15 UNITS IV CONT (05:59)
[2020-08-10] MEDS: ACETAMINOPHEN 500 MG TABLET 1000 MG PO (09:02)
[2020-08-10] MEDS: HYDROmorphone HCL INJ (*CRX) 1 MG/ML SYR 0.5 MG IV PUSH (09:57)
--- NOTE | 2020-08-10 11:13 | PC.NURSE ---
To [facility] via [facility]. Condition stable.
--- NOTE | 2020-08-10 11:14 | PC.NURSE ---
Sent to [place] with Heparin infusing. Approx 45 ml infused.
[2020-08-10 11:20] LABS: Basophils Percent Auto 0.4 % (0.2-1.2); Eosinophils Percent Auto 0.3 % (0-4.4); Hematocrit 48.2 % (42.0-52.0); Hemoglobin 16.1 g/dL (14.0-18.0); Immature Granulocyte Absolute 0.13 K/mm3 (0.00-0.031); Immature Granulocyte Percent A 1.1 % (0-0.5); Lymphocytes Absolute Auto 1.06 K/mm3 (0.9-3.2); Lymphocytes Percent Auto 9.3 % (18.3-44.2); Mean Corpuscular HGB Conc 33.4 g/dl (32-36); Mean Corpuscular Hemoglobin 28.8 pg (26-34); Mean Corpuscular Volume 86.1 fl (80-100); Mean Platelet Volume 11.1 fl (7.4-10.4); Monocytes Percent Auto 8.5 % (2.6-8.5); Neutrophils Absolute Auto 9.2 K/mm3 (1.3-6.7); Neutrophils Percent Auto 80.4 % (45.5-73.1); Platelet Count Result 246 k/mm3 (150-375); Red Cell Distribution Width 12.9 % (11.5-14.5); White Blood Count 11.4 K/mm3 (4.5-10.0)
[2020-08-10 11:28] LABS: Prothrombin Time 13.8 Seconds (11.1-14.7)
[2020-08-10 11:30] LABS: Lactic Acid Reflex 1.3 mmol/L (0.7-2.1); Potassium 4.1 mmol/L (3.4-5.0)
[2020-08-10 11:32] LABS: Alanine Aminotransferase 39 U/L (4-50); Albumin Level 4.3 g/dL (3.5-5.1); Alkaline Phosphatase 87 U/L (38-126); Anion Gap 5 mmol/L (8-16); Aspartate Amino Transferase 26 U/L (17-59); Bilirubin,Total 0.5 mg/dL (0.2-1.3); Blood Urea Nitrogen 10 mg/dL (9-20); Calcium 9.1 mg/dL (8.4-10.2); Carbon Dioxide 31 mmol/L (22-30); Chloride 100 mmol/L (98-107); Estimated CRCL calculation 145 ml/min; Estimated Glomerular Filt Rate > 60; Glucose 213 mg/dL (75-110); Sodium 136 mmol/L (137-145)
== END 2020-08-10 11:14 | disposition short-term general hospital (02) ==
PROVIDERS: Emergency Medicine; General Practice; Emergency Provider Emergency Medicine
DX: I77.79 Dissection of other specified artery (principal); R10.10 Upper abdominal pain, unspecified; R74.8 Abnormal levels of other serum enzymes; G89.4 Chronic pain syndrome; M54.9 Dorsalgia, unspecified; M54.2 Cervicalgia; J44.9 Chronic obstructive pulmonary disease, unspecified; K21.9 Gastro-esophageal reflux disease without esophagitis; G47.30 Sleep apnea, unspecified; Z87.442 Personal history of urinary calculi; K42.9 Umbilical hernia without obstruction or gangrene; I49.1 Atrial premature depolarization
CPT/HCPCS: 36415; 74174; 74177; 80053; 81001; 83605; 83690; 85025; 85610; 85730; 86850; 86900; 86901; 93005; 96361; 96365; 96366; 96375; 96376; 99285; A9270; J1170; J1644; J2405; J7030; Q9967

== ENCOUNTER 2020-10-06 16:25 | Outpatient (CLI) | payer MEDICARE, MEDICAID, SELFPAY ==
--- NOTE | ~2020-10-06 | US_ITS ---
EXAMINATION: US venous doppler [facility] DATE: 10/06/2020 17:01 INDICATION: Left lower limb pain and swelling TECHNIQUE: Grayscale ultrasound images without and with compression and Doppler ultrasound images of the left lower extremity veins were obtained. COMPARISON: None. FINDINGS: The visualized portions of left common femoral vein, profunda (deep) femoral vein, femoral vein, popl iteal vein, peroneal veins, posterior tibial veins, gastrocnemius vein and greater saphenous vein out flow are patent. IMPRESSION: 1. No deep venous thrombosis in the left lower limb. Reviewed, dictated and finalized at location A.
[2020-10-06 17:54] LABS: INR 2.5; Prothrombin Time 26.7 Seconds (11.1-14.7)
== END 2020-10-06 16:26 | disposition home or self-care (01) ==
LOC: ANHIMG 16:26
PROVIDERS: Visit Provider Physician Assistant
DX: M25.572 Pain in left ankle and joints of left foot (principal); M79.89 Other specified soft tissue disorders; Z79.01 Long term (current) use of anticoagulants
CPT/HCPCS: 36415; 85610; 93971

== ENCOUNTER 2020-10-12 10:06 | Outpatient (CLI) | payer MEDICARE, MEDICAID, SELFPAY ==
--- NOTE | ~2020-10-12 | CT_ITS ---
EXAMINATION: CTA abdomen pelvis DATE: 10/12/2020 11:04 INDICATION: Acute mesenteric ischemia TECHNIQUE: Computed tomographic angiography (CTA) of the abdomen and pelvis was performed without and with 100 mL Omnipaque-350 intravenous contrast. Maximum intensity projection 3D-reconstructions of t he aorta and other arteries were constructed by the technologist on a separate workstation. The dose- length product (DLP) was 2817.77 mGy-cm. Automated exposure control and iterative reconstruction tech [employer] were employed. COMPARISON: 08/10/2020 FINDINGS: Minimal dependent atelectasis is present in the lung bases. The heart size is normal. There is a persistent dissection in the proximal aspect of the superior mesenteric artery. Previously seen partial thrombosis in segmental branches has decreased. Surrounding inflammation has also decreased. No new dissection is identified. The celiac axis and inferior mesenteric artery are normal. There ar e single renal arteries bilaterally. The liver is diffusely low in attenuation when compared with the spleen, consistent with hepatic steatosis. The gallbladder, spleen, pancreas, and adrenal glands are normal. There is a 6 mm nonobstructing stone of the left kidney. Cysts of the right kidney measure u p to 3.8 cm. No pathologically enlarged abdominal or pelvic lymph nodes are identified. There is no f ree intraperitoneal gas or evidence of bowel obstruction. There is a fat-containing umbilical hernia. The appendix is normal. Colonic diverticulosis is present without evidence of diverticulitis. There is severe lumbar spondylosis. IMPRESSION: 1. 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 Reviewed, dictated and finalized at location B. IMPRESSION: 1. 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
[2020-10-12 10:50] LABS: Estimated Glomerular Filt Rate > 60
== END 2020-10-12 10:07 | disposition home or self-care (01) ==
PROVIDERS: PCP Physician Assistant
DX: K55.069 Acute infarction of intestine, part and extent unspecified (principal)
CPT/HCPCS: 74174; Q9967

== ENCOUNTER 2020-12-24 12:24 | Emergency (ER) | payer MEDICARE, MEDICAID, SELFPAY ==
--- NOTE | ~2020-12-24 | CT_ITS ---
EXAMINATION: CT abdomen pelvis w con DATE: 12/24/2020 16:43 INDICATION: Right abdominal pain. History of renal thrombosis. TECHNIQUE: Computed tomography (CT) of the abdomen and pelvis was performed with 100 cc Omnipaque 350 intravenous contrast. Automated exposure control and iterative reconstruction technique were employe d. Exam dose: 1397.57 mGy-cm total exam DLP. COMPARISON: 10/12/2020 CT abdomen pelvis FINDINGS: The lung bases are clear of infiltrate or consolidation. Normal heart size. No pericardial or pleural effusion. Diffuse hepatic steatosis. No hepatic, splenic, pancreatic, adrenal space-occupying mass lesion. The gallbladder is present. No bile duct or pancreatic duct dilatation. There are multiple right renal cysts, the largest measuring up to 2.4 cm. Probable 5 mm left renal [address]. No renal vein thrombosis is evident. 5.5 mm nonobstructing mid right renal calculus. 7 mm nonobstructing mid left renal calculus. The urinary bladder, prostate gland and seminal vesicles are unremarkable other than minimal prostate calcification. Normal caliber of the abdominal aorta. The celiac and superior mesenteric and renal arteries appear p atent. No intraperitoneal or retroperitoneal or pelvic mass lesion or adenopathy or ascites. Normal appendix. There are multiple diverticula of the descending and sigmoid colon. There is some focal linear soft tissue thickening with central fat density along the distal descendin g colon, suggesting epiploic appendage I disc. No abscess is evident. No bowel obstruction, bowel wal l thickening, pneumatosis or intraperitoneal free air. Approximately 4 x 4.8 cm fat-containing umbilical hernia. There is chronic severe degenerative disc disease and mild retrolisthesis at L2-3. There is chronic m ild anterior wedge compression fracture deformity of L3, likely chronic. Bilateral hip osteoarthritis. IMPRESSION: Diffuse hepatic steatosis Bilateral renal cysts, more numerous on the right No renal vein thrombosis is detected 5.5 mm nonobstructing right renal calculus and 7 mm nonobstructing left renal calculus Diverticulosis of the left colon Suggestion of focal epiploic appendicitis, distal descending colon Normal appendix Reviewed, dictated and finalized at Location A. Reviewed, dictated and finalized at location B. IMPRESSION: Diffuse hepatic steatosis Bilateral renal cysts, more numerous on the right No renal vein thrombosis is detected 5.5 mm nonobstructing right renal calculus and 7 mm nonobstructing left renal c alculus Diverticulosis of the left colon Suggestion of focal epiploic appendicitis, distal descending colon Normal appendix
[2020-12-24 12:26] VITALS: BP 136/101; PULSE 94; RESP 16; TEMP 36.8; O2SAT 98
[2020-12-24 12:52] LABS: Basophils Absolute Auto 0.1 K/mm3 (0.0-0.1); Eosinophils Absolute Auto 0.8 K/mm3 (0-0.3); Eosinophils Percent Auto 9.1 % (0-4.4); Hematocrit 44.9 % (42.0-52.0); Hemoglobin 15.1 g/dL (14.0-18.0); Immature Granulocyte Absolute 0.07 K/mm3 (0.00-0.031); Immature Granulocyte Percent A 0.8 % (0-0.5); Lymphocytes Absolute Auto 1.59 K/mm3 (0.9-3.2); Lymphocytes Percent Auto 17.4 % (18.3-44.2); Mean Corpuscular HGB Conc 33.6 g/dl (32-36); Mean Corpuscular Hemoglobin 29.1 pg (26-34); Mean Corpuscular Volume 86.5 fl (80-100); Mean Platelet Volume 10.5 fl (7.4-10.4); Monocytes Percent Auto 10.4 % (2.6-8.5); Neutrophils Absolute Auto 5.6 K/mm3 (1.3-6.7); Neutrophils Percent Auto 61.3 % (45.5-73.1); Platelet Count Result 256 k/mm3 (150-375); Red Blood Count 5.19 M/mm3 (4.6-6.20); Red Cell Distribution Width 13.9 % (11.5-14.5); White Blood Count 9.1 K/mm3 (4.5-10.0)
[2020-12-24 13:01] LABS: Add Urine Microscopic? YES; Appearance Urine Clear (Clear); Bilirubin Urine Negative (Negative); Blood Urine 2+ (Negative); Color Urine Yellow (Yellow); Glucose Urine UA Negative (Negative); Ketones Urine Negative (Negative); Leukocyte Esterase Ur Negative LEU/UL (Negative); Mucus Urine Rare /lpf; Nitrate Urine Negative (Negative); Protein Urine 1+ mg/dL (Negative); Specific Grav Ur 1.023 (1.001-1.035); Urobilinogen Urine Negative mg/dL (<2.0)
[2020-12-24 13:05] LABS: Prothrombin Time 22.4 Seconds (11.1-14.7)
[2020-12-24 13:06] LABS: Partial Thromboplastin Time 36.1 SECONDS (22.3-36.8)
[2020-12-24 13:11] LABS: Alanine Aminotransferase 34 U/L (4-50); Albumin Level 4.6 g/dL (3.5-5.1); Alkaline Phosphatase 66 U/L (38-126); Anion Gap 9 mmol/L (8-16); Aspartate Amino Transferase 56 U/L (17-59); Bilirubin,Total 0.2 mg/dL (0.2-1.3); Blood Urea Nitrogen 13 mg/dL (9-20); Calcium 9.1 mg/dL (8.4-10.2); Carbon Dioxide 28 mmol/L (22-30); Chloride 104 mmol/L (98-107); Estimated CRCL calculation 103 ml/min; Estimated Glomerular Filt Rate > 60; Glucose 150 mg/dL (65-110); Lipase 99 U/L (23-300); Sodium 141 mmol/L (137-145)
--- NOTE | 2020-12-24 14:31 | ED.ABDPAIN ---
HPI - Abdominal Pain General Chief Complaint: Abdominal Pain Stated Complaint: ABD PAIN X FEW WEEKS Time Seen by Provider: 12/24/20 14:30 Source: patient Mode of arrival: ambulatory Limitations: no limitations History of Present Illness HPI narrative: The patient is a 54 yo male with a history of renal thrombosis, type 2 diabetes, hypertension, currently anticoagulated on Coumadin, who presents for evaluation of abdominal pain. Patient states that he was diagnosed a few months ago with a renal thrombosis, required transfer to [facility] where he was placed on anticoagulation. Patient reports a 2-week history of worsening right lower quadrant abdominal pain that is dull, aching in nature with radiation to the right flank. Patient denies any bruising. He has been compliant with this therapy but states he does not have INR checks because he had a change in his insurance recently. Patient denies fever, chills, vomiting, diarrhea or constipation. Reports nausea. No urinary symptoms. Related Data Home Medications Medication Instructions Recorded Confirmed budesonide-formoterol [Symbicort] INHALATION 04/23/19 albuterol sulfate [Ventolin HFA] INHALATION 05/01/19 05/01/19 glimepiride mg 12/24/20 losartan 12/24/20 metformin mg 12/24/20 pantoprazole PO 12/24/20 rosuvastatin mg 12/24/20 warfarin 12/24/20 Allergies Allergy/AdvReac Type Severity Reaction Status Date / Time fentanyl Allergy Unknown Unknown Verified 12/24/20 12:34 ketorolac Allergy Unknown vomiting Verified 12/24/20 12:34 KETOROLAC TROMETHAMINE Allergy Unknown RASH* SEE Uncoded 08/08/20 22:02 NOTE Review of Systems Review of Systems: CONSTITUTIONAL: Denies fever, chills, or sweats. EYES: Denies visual changes, redness, or discharge. ENT: Denies rhinorrhea, congestion, sore throat, or otalgia. CARDIOVASCULAR: Denies chest pain, palpitations, or edema. RESPIRATORY: Denies cough or dyspnea. GASTROINTESTINAL: Reports right-sided abdominal pain without vomiting, reports mild nausea GENITOURINARY: Denies dysuria or hematuria. SKIN: Denies rash or itching. MUSCULOSKELETAL: Denies back pain, joint pain, or myalgia. NEUROLOGIC: Denies headache, numbness, or weakness. [facility] Past Medical History Medical History (Updated 12/24/20 @ 17:25 by Bia Garcia MD) Asthma per patient Chronic back pain per patient Chronic neck pain per patient Chronic prescription opiate use pt reports [place] 7.5 mg TID for chronic pain COPD (chronic obstructive pulmonary disease) GERD (gastroesophageal reflux disease) Kidney stone Migraine headache Sleep apnea Surgical History Surgical History H/O lithotripsy Family History Family History Sibling Family history of gastrointestinal disorder Family history of chronic obstructive pulmonary disease Other Family history of kidney stones Family history of malignant neoplasm Social History Social History Smoking status: Never smoker Smoking end date: 03/26/92 Alcohol intake: current Substance use: never Gender identity (if verbalized by the patient): Male Exam Narrative: GENERAL: Awake, alert, conversant HEAD: Normocephalic, atraumatic. EYES: 2+ PERRLA and EOMI. ENT: Nares clear, no rhinorrhea or epistaxis. Mucous membranes moist. NECK: Supple. CHEST: No respiratory distress, breathing even and non labored HEART: Regular rate, sinus rhythm ABDOMEN:Obese, mild distention, tender in the right lower quadrant, right flank tenderness, no rebound EXTREMITIES: Normal range of motion. No edema. SKIN: Pale, warm, dry, no rash. NEURO:No focal deficits. Alert and oriented x3 Course Vital Signs Vital signs: Vital Signs Temperature 36.8 C 12/24/20 12:26 Pulse Rate 94 12/24/20 12:26 Respiratory Rate 16 1
== END 2020-12-24 17:44 | disposition home or self-care (01) ==
PROVIDERS: Emergency Provider Emergency Medicine; PCP Physician Assistant
DX: K63.89 Other specified diseases of intestine (principal); E11.9 Type 2 diabetes mellitus without complications; I10 Essential (primary) hypertension; J44.9 Chronic obstructive pulmonary disease, unspecified; K21.9 Gastro-esophageal reflux disease without esophagitis; G47.30 Sleep apnea, unspecified; Z87.442 Personal history of urinary calculi; Z79.01 Long term (current) use of anticoagulants; Z79.84 Long term (current) use of oral hypoglycemic drugs
CPT/HCPCS: 36415; 74177; 80053; 81001; 83690; 85025; 85610; 85730; 99284; Q9967

== ENCOUNTER 2021-06-23 17:19 | Outpatient (CLI) | payer MEDICARE, MEDICAID, SELFPAY ==
--- NOTE | ~2021-06-23 | DEXA_ITS ---
Bone Density Report Name: SONIDO VALENCIA Age: 55 Sex: Male Ethnicity: White Date of : 1965 Indication: history of glucocorticoids; prior fracture; Referring Provider: SUNSHINE, ALENA Alfonso Study: Bone densitometry was performed. Exam Date: June 23, 2021 Accession number: [id number] Bone Density: Region BMD T-score Z-score Classification AP Spine (L1, L2, L4) 1.005 -0.7 -0.3 Normal Femoral Neck (Left) 0.699 -1.7 -0.9 Osteopenia Total Hip (Left) 0.925 -0.7 -0.3 Normal Total Hip Bilateral Avg 0.900 -0.9 -0.5 Normal Femoral Neck (Right) 0.664 -2.0 -1.1 Osteopenia Total Hip (Right) 0.874 -1.1 -0.7 Osteopenia World Health Organization criteria for BMD impression classify patients as: Normal (T-score at or above -1.0), Osteopenia (T-score between -1.0 and -2.5), or Osteoporosis (T-score at or below -2.5). 10-year Fracture Risk(1): Major Osteoporotic Fracture 15% Hip Fracture 2.6% Reported Risk Factors: [place] (), Neck BMD=0.664, BMI=38.4, previous fracture, glucocorticoids Input outside FRAX(R) limits. Adjusted to:Zuwzgk=672 kg (1) FRAX(R) Version 3.08. Fracture probability calculated for an untreated patient. Fracture probability may be lower if the patient has received treatment. Clinical Information Provided by Patient: Has had a low trauma fracture Has taken Glucocorticoids Patient maximum height was 71 Impression: The patient has low bone mass, based on the Right Femoral Neck T-score. The patient has an estimated ten-year risk of hip fracture of 2.6% and an estimated ten-year risk of major fracture of 15%, based on the WHO FRAX algorithm. The patient has risk factors, including: previous fracture, history of glucocorticoid therapy. Discussion: BONE DENSITY IS LOW AT ONE OR MORE SKELETAL SITES. This patient's lowest T-score is low at one or more skeletal sites. It meets the World Health Organization's (WHO) criteria for ?low bone mass? (T-score between -1.0 and -2.5). The patient's 10-year risk of fracture as calculated by FRAX is less than the threshold where pharmacological therapy is recommended by the National Osteoporosis Foundation (NOF). However, all treatment decisions require clinical judgment and consideration of individual patient factors, including patient preferences, comorbidities, previous drug use, risk factors not captured in the FRAX model (e.g., frailty, falls, vitamin D deficiency, increased bone turnover, interval significant decline in bone density) and possible under or overestimation of fracture risk by FRAX. The patient should follow a healthful lifestyle (good nutrition with adequate calcium and vitamin D, and appropriate weight-bearing exercise). Follow-Up: Consider repeating this study in 2 to 3 years to reassess this patient's status, or sooner if there is some new
== END 2021-06-23 17:20 | disposition home or self-care (01) ==
PROVIDERS: PCP Physician Assistant; Visit Provider Physician Assistant
DX: S32.030A Wedge compression fracture of third lumbar vertebra, initial encounter for closed fracture (principal); M85.852 Other specified disorders of bone density and structure, left thigh; M85.851 Other specified disorders of bone density and structure, right thigh
CPT/HCPCS: 77080

== ENCOUNTER 2021-12-09 10:55 | Outpatient (CLI) | payer MEDICARE, MEDICAID, SELFPAY ==
--- NOTE | ~2021-12-09 | XR_ITS ---
EXAMINATION: XR hand LT min 3V DATE: 12/09/2021 11:16 INDICATION: Left hand pain. Swelling. TECHNIQUE: 3 views of left hand were obtained. COMPARISON: Left wrist radiographs 04/23/2019 FINDINGS: Bone alignment is normal. No fracture. There is deformity of the tuft of third distal phala nx, likely from old injury. There is mild osteoarthritis of first carpometacarpal joint, first metaca rpophalangeal joint, and some of the interphalangeal joints. IMPRESSION: 1. Mild polyarticular osteoarthritis. Reviewed, dictated and finalized at location A.
--- NOTE | ~2021-12-09 | US_ITS ---
EXAMINATION: US abdomen complete DATE: 12/09/2021 11:50 INDICATION: Transaminitis TECHNIQUE: Multiple grayscale and Doppler ultrasound images of the abdomen were obtained. COMPARISON: CT, 12/24/2020 FINDINGS: Bowel gas obscures visualization of the pancreas. The liver demonstrates increased echogeni city, heterogenous echotexture, and decreased through transmission. No surface nodularity. Normal hep atopetal flow in the main portal vein. The gallbladder is normal with no abnormal wall thickening, pe richolecystic fluid or stones. The normal common bile duct measures 4 mm. There was no sonographic Mu rphy sign. The visualized portions of the aorta and inferior vena cava are normal. The right kidney measures 12.5 x 7.2 x 7.8 cm and contains a 2.7 cm cyst. The left kidney measures 14 .1 x 5.8 x 6.2 cm. The kidneys demonstrate normal parenchymal echogenicity. There is no hydronephrosi s. The spleen is normal in appearance and measures 14.1 cm. IMPRESSION: 1. Diffuse hepatic steatosis. Reviewed, dictated and finalized at location B.
== END 2021-12-09 10:56 | disposition home or self-care (01) ==
PROVIDERS: PCP Physician Assistant; Visit Provider Physician Assistant
DX: R74.01 Elevation of levels of liver transaminase levels (principal); K76.0 Fatty (change of) liver, not elsewhere classified; M19.042 Primary osteoarthritis, left hand
CPT/HCPCS: 73130; 76700

== ENCOUNTER 2022-06-09 17:46 | Emergency (ER) | payer MEDICARE, MEDICAID, SELFPAY ==
--- NOTE | ~2022-06-09 | CT_ITS ---
EXAMINATION: CT abdomen pelvis wo con DATE: 06/09/2022 18:28 INDICATION: Right flank pain TECHNIQUE: Computed tomography (CT) of the abdomen and pelvis was performed without intravenous contr ast. The dose-length product was 1225.42 mGy-cm. Automated exposure control and iterative reconstruct ion technique were employed. COMPARISON: CT dated 12/24/2020 FINDINGS: Lung bases are unremarkable. Heart size normal. No significant pleural or pericardial effus ion. No significant vascular abnormality. No lymphadenopathy. There is a fat-containing umbilical hernia. Colonic diverticulosis without eviden ce for diverticulitis. Fatty infiltration of the liver. The spleen, pancreas, adrenal glands are unre markable. There is a nonobstructing 9 mm left renal stone. Left ureter is normal in course and calibe r without stone. There is a 6 mm right UPJ stone. Nonobstructive bowel gas pattern. Normal appendix. No free air or free fluid. IMPRESSION: 1. 6 mm right UPJ stone with mild hydronephrosis. 2: Nonobstructing left nephrolithiasis. Reviewed, dictated and finalized at location A.
--- NOTE | ~2022-06-09 | XR_ITS ---
XR abdomen/kub 1V 06/09/2022 19:27 INDICATION: Right flank pain TECHNIQUE: KUB COMPARISON: Comparison to multiple prior studies sequentially, with oldest reviewed study dated 10/2018. FINDINGS: Bowel gas pattern is normal. There is no evidence of free air, mass, organomegaly, ascites or obstruction. No abnormal calculi are seen. The bones appear intact. There is a severe lumbar sp ondylosis with levoscoliosis. IMPRESSION: 1: No acute abdominal abnormality identified. Reviewed, dictated and finalized at location A.
[2022-06-09 17:49] VITALS: BP 119/78; PULSE 88; RESP 20; TEMP 36.3; O2SAT 94
[2022-06-09 18:04] LABS: Basophils Absolute Auto 0.1 K/mm3 (0.0-0.1); Basophils Percent Auto 0.7 % (0.2-1.2); Eosinophils Absolute Auto 0.6 K/mm3 (0-0.3); Eosinophils Percent Auto 6.9 % (0-4.4); Hemoglobin 15.6 g/dL (14.0-18.0); Immature Granulocyte Absolute 0.06 K/mm3 (0.00-0.031); Immature Granulocyte Percent A 0.7 % (0-0.5); Lymphocytes Absolute Auto 1.84 K/mm3 (0.9-3.2); Lymphocytes Percent Auto 20.8 % (18.3-44.2); Mean Corpuscular HGB Conc 34.7 g/dl (32-36); Mean Corpuscular Hemoglobin 28.9 pg (26-34); Mean Corpuscular Volume 83.5 fl (80-100); Mean Platelet Volume 10.4 fl (7.4-10.4); Monocytes Absolute Auto 0.8 K/mm3 (0.1-0.6); Monocytes Percent Auto 8.7 % (2.6-8.5); Neutrophils Absolute Auto 5.5 K/mm3 (1.3-6.7); Neutrophils Percent Auto 62.2 % (45.5-73.1); Platelet Count Result 256 k/mm3 (150-375); Red Blood Count 5.39 M/mm3 (4.6-6.20); Red Cell Distribution Width 13.6 % (11.5-14.5); White Blood Count 8.8 K/mm3 (4.5-10.0)
[2022-06-09 18:15] LABS: Alanine Aminotransferase 70 U/L (6-50); Albumin Level 4.7 g/dL (3.5-5.1); Alkaline Phosphatase 52 U/L (38-126); Anion Gap 8 mmol/L (8-16); Aspartate Amino Transferase 59 U/L (17-59); Bilirubin,Total 0.6 mg/dL (0.2-1.3); Blood Urea Nitrogen 17 mg/dL (9-20); Calcium 9.2 mg/dL (8.4-10.2); Carbon Dioxide 29 mmol/L (22-30); Chloride 97 mmol/L (98-107); Estimated CRCL calculation 80 ml/min; Estimated Glomerular Filt Rate 57; Glucose 132 mg/dL (65-110); Potassium 4.2 mmol/L (3.4-5.0); Sodium 134 mmol/L (137-145)
[2022-06-09 18:24] LABS: Appearance Urine Cloudy (Clear); Bacteria Urine None Seen /hpf; Bilirubin Urine 1+ (Negative); Blood Urine 3+ (Negative); Color Urine Dark Yellow (Yellow); Glucose Urine UA Negative (Negative); Ketones Urine 1+ mg/dL (Negative); Leukocyte Esterase Ur 1+ LEU/UL (Negative); Need Manual Microscopic Reviewed; Nitrate Urine Negative (Negative); Protein Urine 1+ mg/dL (Negative); RBC Urine >100 /hpf (0-2); Specific Grav Ur 1.027 (1.001-1.035); Squamous Epithelial Cell Urine Occasional /hpf (Few); pH Urine 6.5 (5.0-9.0)
[2022-06-09 18:40] LABS: Add Urine Microscopic? YES
[2022-06-09] MEDS: SODIUM CHLORIDE 0.9% IV 1,000 ML 999 ML IV CONT (18:42)
[2022-06-09] MEDS: ONDANSETRON INJ 4 MG/2 ML VIAL IV PUSH (18:42)
[2022-06-09] MEDS: MORPHINE SULFATE (*CRX) 4 MG/ML INJ IV PUSH ×2 (18:43→19:26)
[2022-06-09 18:46] VITALS: BP 104/93; PULSE 88; RESP 18; O2SAT 95
--- NOTE | 2022-06-09 19:39 | ED.GENADULT ---
HPI - General Adult General Chief complaint: Urogenital-Male Stated complaint: Flankpain side pain. Time Seen by Provider: 06/09/22 18:05 History of Present Illness HPI narrative: Patient is a 56-year-old male who presents ER with right-sided flank pain. Ongoing for 2 days. Has started to radiate around the right side of his abdomen. His nausea and sweats. No urinary frequency urgency or dysuria. No blood in his urine. Has history of kidney stones but feels this is somewhat different. Is without other GI symptoms. No recent trauma or injury. Related Data Home Medications Medication Instructions Recorded Confirmed budesonide-formoterol HFA 160 inhalation 04/23/19 mcg-4.5 mcg/actuation aerosol inhaler (Symbicort) albuterol sulfate 90 mcg/actuation inhalation 05/01/19 05/01/19 aerosol inhaler (Ventolin HFA) glimepiride 2 mg tablet mg 12/24/20 losartan 25 mg tablet 12/24/20 metformin 1,000 mg tablet mg 12/24/20 pantoprazole 40 mg tablet,delayed PO 12/24/20 release rosuvastatin 40 mg tablet mg 12/24/20 warfarin 4 mg tablet 12/24/20 Allergies Allergy/AdvReac Type Severity Reaction Status Date / Time fentanyl Allergy Unknown Unknown Verified 06/09/22 17:49 ketorolac Allergy Unknown vomiting Verified 06/09/22 17:49 KETOROLAC TROMETHAMINE Allergy Unknown RASH* SEE Uncoded 06/09/22 17:49 NOTE Review of Systems Review of Systems: All systems reviewed & are unremarkable except as noted in HPI and below Constitutional: Constitutional: Denies chills, Denies fatigue and Denies fever(s) ENT: Denies nasal congestion and Denies sore throat Cardiovascular: Cardiovascular: Denies chest pain, Denies rapid heart rate and Denies radiating jaw, neck or arm pain Respiratory: Respiratory: Denies cough and Denies dyspnea Gastrointestinal: Gastrointestinal: Reports abdominal pain, Reports nausea and Denies vomiting Genitourinary: Genitourinary: Denies hematuria, Denies dysuria and Denies urinary frequency Comments: Positive flank pain PMFSH Past Medical History Medical History (Updated 06/09/22 @ 20:20 by Freddie Aranda MD) Asthma per patient Chronic back pain per patient Chronic neck pain per patient Chronic prescription opiate use pt reports [place] 7.5 mg TID for chronic pain COPD (chronic obstructive pulmonary disease) GERD (gastroesophageal reflux disease) Kidney stone Migraine headache Sleep apnea Surgical History Surgical History H/O lithotripsy Family History Family History Sibling Family history of gastrointestinal disorder Family history of chronic obstructive pulmonary disease Other Family history of kidney stones Family history of malignant neoplasm Social History Social History Smoking status: Never smoker Smoking end date: 03/26/92 Alcohol intake: current Substance use: never Living arrangements: with family Gender identity (if verbalized by the patient): Male Exam Narrative: GENERAL: Uncomfortable-appearing, well-nourished, and in no acute distress. HEAD: Normocephalic, atraumatic. EYES: PERRL and EOMI. ENT: Mucous membranes moist. CHEST: Clear to auscultation. No respiratory distress. HEART: Regular rate and rhythm. Normal peripheral pulses. ABDOMEN: Soft, nontender, nondistended. No reproducible CVA tenderness. EXTREMITIES: Normal range of motion. No edema. SKIN: Warm, dry, no rash. NEURO: Alert and oriented x3. PSYCH: Normal mood and affect. Course Course Emergency Course: 1934: Patient more comfortable. Pain currently 6/2:10 doses of morphine. UVJ stone this time. Will contact urology to discuss additional management. Unable to visualize stone on KUB. 2019: Discussed the case with Dr. Morgan's. The plan is to discharge patient home with supportive care.
[2022-06-09 21:53] VITALS: BP 115/94; PULSE 86; RESP 20; O2SAT 98
== END 2022-06-09 21:54 | disposition home or self-care (01) ==
PROVIDERS: Emergency Medicine; Emergency Provider Emergency Medicine
DX: N13.2 Hydronephrosis with renal and ureteral calculous obstruction (principal); J44.9 Chronic obstructive pulmonary disease, unspecified; K21.9 Gastro-esophageal reflux disease without esophagitis; G47.30 Sleep apnea, unspecified; Z87.442 Personal history of urinary calculi
CPT/HCPCS: 36415; 74018; 74176; 80053; 81001; 85025; 87086; 96361; 96374; 96375; 96376; 99284; J2270; J2405; J7030

== ENCOUNTER 2022-06-20 01:30 | Day surgery (SDC) | payer MEDICARE, MEDICAID, SELFPAY ==
[2022-06-14 14:20] VITALS: BMI 42.7
--- NOTE | 2022-06-14 14:30 | PC.NURSE ---
Report to the Outpatient Waiting Room, entrance under the green pavilion located off [facility], at time 9:15 on date 06/20/22. Planned Procedure Time: 11:15. Time changes happen often and if your time is changed the preop area will call you the afternoon before. - You and your visitor will be asked to self-screen and do not enter if you have any COVID symptoms. - Only one visitor is requested with a max of two and NO children visitors are allowed at this time. - The patient visitor may be requested to leave or wait in car when not with patient due to distancing restrictions. - A mask is optional within the hospital at this time. Patients may have clear liquids (water, carbonated beverages, clear teas, apple juice) until 3 hours prior to surgery (8:15) with a maximum of 20 ounces. - No food from midnight until time of surgery Take the following medications with a SIP of water the morning of surgery: INHALERS, PAIN PILL IF NEEDED DO NOT STOP ANY OF YOUR OTHER PRESCRIPTION MEDICATIONS PRIOR TO SURGERY EXCEPT THE FOLLOWING Medications to discontinue per physician: WARFARIN Date to take last dose: PER DR. MANRIQUEZ Please no make-up, nail malaysian, hairspray, perfume, deodorant, or body powder the day of surgery. No jewelry (including any body piercings) or valuables the day of surgery, leave them at home. Please take a shower or bath the night before, or the morning of, surgery with an antibacterial soap. Wear comfortable, loose fitting clothing. - Jewelry must be removed prior to entering the operating room. Rings and piercings that are not removed may be cut off. - The hospital will not accept responsibility for valuables. - Please leave all valuables, including medications, at home the day of surgery. If you are going home after surgery, a licensed mobile lounge driver must drive you home. - NO public transportation without another adult if you receive anesthesia. - We recommend that an adult stay with you for 24 hours following discharge. - We also recommend that you do not drive, make important decision, drink alcoholic beverages, or take any drugs that were not prescribed by your health care provider for at least 24 hours after your discharge time. Follow any additional instructions given to you from your surgeon. If you or anyone in your household have experienced Covid symptoms in the past week, please notify your surgeon or the nurse liaison at the phone number below for possible testing. Telephone instructions given to JACQEU VALENCIA and asked if any additional questions and then verbalized understanding. Patient advised to call surgeon office or pre surgery nurse liaison [phone] if any additional questions.
[2022-06-20] VITALS (9 sets, daily range): BP systolic 113–142; BP diastolic 74–96; PULSE 77–97; RESP 12–18; TEMP 36.3–36.4; O2SAT 93–100
--- NOTE | ~2022-06-20 | XR_ITS ---
EXAMINATION: XR retrograde pyelogram RT INDICATION: Right retrograde pyelogram TECHNIQUE: A single fluoroscopic image is submitted for review. Total fluoroscopic time is 15.4 secon ds. COMPARISON: None available FINDINGS: Fluoroscopic image demonstrates a mildly dilated right collecting system and partial opacif ication of the right ureter. Please refer to procedure note for full details. IMPRESSION: 1. Mildly dilated right collecting system with partial opacification of the right ureter. Reviewed, dictated and finalized at location F. IMPRESSION: 1. Mildly dilated right collecting system with partial opacification of the rig ht ureter.
--- NOTE | 2022-06-20 09:03 | WPDHPUPDATE1 ---
History and Physical Update Update Date/Time: 06/20/22 09:03 History and Physical has been reviewed, including an updated exam of the patient. There are NO changes in the patient's condition. Risks, benefits, and alternatives have been discussed and questions answered. Patient agrees to proceed with procedure. Proceed with cystoscopy, right retrograde pyelogram, right ureteroscopy with laser of stone, stone extraction, stent placement
--- NOTE | 2022-06-20 09:25 | ECG_ITS ---
Measurements Intervals [place] Rate: 82 P: 35 [place]: 160 QRS: 6 QRSD: 87 T: 46 QT: 396 QTc: 465 Interpretive Statements SINUS RHYTHM NONSPECIFIC T-WAVE ABNORMALITY- LATERAL LEADS BASELINE ARTIFACT- V4-V5 BORDERLINE ECG COMPARED TO ECG 08/09/2020 23:21:16 T-WAVE ABNORMALITY NOW PRESENT Electronically Signed On 06-20-2022 10:26:06 CDT by Laith Suazo D.O.
--- NOTE | 2022-06-20 09:56 | WPDANESEPPF ---
Anes - Initial Pre Proc Eval Procedure: Operation Date: 06/20/22 11:15 Proposed Procedures p Cystoscopy, Right Ureteroscopy, Right Stone Extraction, Possible Right Retrograde Pyelogram, Possible Right Stent Placement, Possible Holmium Laser - Yusuf Jorge MD Date/Time: 06/20/22 09:56 Surgeon: Yusuf Jorge MD Pre Op Diagnosis: Rt Ureteral Stone Patient Data Age: 56 Gender: M Height: 1.78 m Weight: 135 kg Allergies Allergy/AdvReac Type Severity Reaction Status Date / Time fentanyl Allergy Unknown Unknown Verified 06/14/22 14:15 ketorolac Allergy Unknown vomiting,Rash Verified 06/20/22 08:47 see note Home Medications Medication Instructions Recorded Confirmed Type budesonide-formoterol HFA 160 2 inh inhalation DAILY 04/23/19 06/14/22 History mcg-4.5 mcg/actuation aerosol inhaler (Symbicort) cyclobenzaprine 10 mg tablet 10 mg PO TID PRN muscle spasm #15 04/24/19 06/14/22 Rx tabs albuterol sulfate 90 mcg/actuation 1 puff inhalation QID PRN 05/01/19 06/14/22 History aerosol inhaler (Ventolin HFA) Bronchospasm acetaminophen 325 mg tablet 325 mg PO Q6H PRN pain #20 tabs 12/24/20 06/14/22 Rx (Tylenol) glimepiride 2 mg tablet 2 mg PO DAILY 12/24/20 06/14/22 History metformin 1,000 mg tablet 1,000 mg PO BID 12/24/20 06/14/22 History pantoprazole 40 mg tablet,delayed 40 mg PO DAILY 12/24/20 06/14/22 History release rosuvastatin 40 mg tablet 40 mg PO DAILY 12/24/20 06/14/22 History warfarin 4 mg tablet 4 mg PO DAILY 12/24/20 06/14/22 History cephalexin 500 mg capsule 500 mg PO Q12H #14 caps 06/09/22 06/14/22 Rx ondansetron 4 mg disintegrating 4 mg PO Q6H PRN nausea and 06/09/22 06/14/22 Rx tablet vomiting #10 tabs oxycodone-acetaminophen 5 mg-325 1 tablet PO Q6H PRN pain #20 tabs 06/09/22 06/14/22 Rx mg tablet (Percocet) oxycodone-acetaminophen 7.5 mg-325 1 tablet PO Q6H PRN pain #20 tabs 06/09/22 06/14/22 Rx mg tablet tamsulosin 0.4 mg capsule 0.4 mg PO DAILY #7 caps 06/09/22 06/14/22 Rx losartan 100 1 tablet PO DAILY 06/14/22 06/14/22 History mg-hydrochlorothiazide 25 mg tablet Patient hx anesthesia problems: none Family hx anesthesia problems: none Results Review: All pre-operative results and documents have been reviewed as part of the pre-operative evaluation. [facility] Past Medical History Medical History Asthma per patient Chronic back pain per patient Chronic neck pain per patient Chronic prescription opiate use pt reports [place] 7.5 mg TID for chronic pain COPD (chronic obstructive pulmonary disease) GERD (gastroesophageal reflux disease) Kidney stone Migraine headache Sleep apnea Surgical History Surgical History H/O lithotripsy Family History Family History Sibling Family history of gastrointestinal disorder Family history of chronic obstructive pulmonary disease Other Family history of kidney stones Family history of malignant neoplasm Social History Social History Smoking status: Never smoker Smoking end date: 03/26/92 Alcohol intake: never Substance use: current Substance use type: marijuana Living arrangements: with roommate(s) Gender identity (if verbalized by the patient): Male Spiritual care concerns: No Anes - Eval Final PreProcedure Day of Procedure 06/20/22 09:56 Patient weight: morbidly obese Heart: regular rate and rhythm Lungs: decreased breath sounds Airway: Mallampati scale class II Neurological: alert and oriented Last oral intake: >/= 8 hours ASA classification: III Emergent: no Anesthetic plan: proceed Anesthesia type and monitoring: general LMA and standard monitoring Results Review: All pre-operative results and documents have been re
[2022-06-20] MEDS: LACTATED RINGERS 1,000 ML 30 ML IV CONT ×2 (10:00→12:32)
[2022-06-20 10:10] LABS: Glucose Point of Care 133 mg/dl (65-105)
[2022-06-20] MEDS: ceFAZolin 3 GM/D5W 100 ML 100 ML IVPB (10:15)
[2022-06-20 10:26] LABS: INR 1.1; Prothrombin Time 13.3 Seconds (11.1-14.7)
[2022-06-20] MEDS: LIDOCAINE HCL 2% GEL UROJET 10 ML PKG MUCOUS MEM (10:32)
--- NOTE | 2022-06-20 10:50 | W.PM.PROC2 ---
Procedure Note - Detailed Date of Procedure 06/20/22 Pre-op Diagnosis Rt Ureteral Stone Post-op Diagnosis Same Procedure Performed Cystoscopy, right retrograde, right ureteroscopy with holmium laser, stone extraction, Surgeon Yusuf Jorge MD Anesthesia General Description of Procedure Patient is taken to the operative suite correctly identified. Once anesthesia was obtained was placed in dorsal lithotomy position and prepped and draped usual sterile fashion. Twenty-two Setswana scope inserted the bladder. There were no tumors noted. The right ureteral orifice was cannulated with 2 guidewires. We then placed a mini flexible ureteral scope up to the stone. An escape basket was placed on a Kali too large to retrieve 1 piece. Using a [email or web address] holmium laser we fragmented the stone into multiple small pieces. These flushed out in the largest stones were then retrieved and sent for analysis. Pyelogram was performed and there was no evidence of extravasation. Patient was so extremely adamant about not having a stent placed. He is aware the risk of spasms clots and need for stent at a later point time. But given his extreme desire we left the stent out at this time. 2% viscous lidocaine was inserted urethra. He will be discharged home. Plan is for renal ultrasound approximately 2-3 weeks time. Please send a copy of report to my office. Estimated Blood Loss 0 Drains No Packing No Pathology Yes Complications No immediate complications Condition Stable Disposition PACU
[2022-06-20 11:08] LABS: Glucose Point of Care 165 mg/dl (65-105)
[2022-06-20] MEDS: fentaNYL CITRATE INJ (*CRX) 100 MCG/2 ML VIAL 25 MCG IV PUSH ×8 (11:40→11:58)
[2022-06-20] MEDS: ONDANSETRON INJ 4 MG/2 ML VIAL IV PUSH (12:31)
[2022-06-20] MEDS: oxyCODONE HCL (*CRX) 5 MG TAB IR PO (12:31)
== END 2022-06-20 13:16 | disposition home or self-care (01) ==
PROVIDERS: Anesthesiology; PCP Nurse Practitioner Family; Visit Provider Urology
PROC: (CPT 52352; principal; 2022-06-20 11:15)
DX: N20.1 Calculus of ureter (principal); M54.2 Cervicalgia; M54.9 Dorsalgia, unspecified; G89.29 Other chronic pain; J44.9 Chronic obstructive pulmonary disease, unspecified; K21.9 Gastro-esophageal reflux disease without esophagitis; G47.30 Sleep apnea, unspecified; F12.90 Cannabis use, unspecified, uncomplicated; E66.01 Morbid (severe) obesity due to excess calories; Z68.41 Body mass index [BMI] 40.0-44.9, adult; Z79.51 Long term (current) use of inhaled steroids; Z79.84 Long term (current) use of oral hypoglycemic drugs; Z79.01 Long term (current) use of anticoagulants; Z79.891 Long term (current) use of opiate analgesic
CPT/HCPCS: 52353; 36415; 74176; 74420; 80053; 81001; 82365; 82948; 83690; 85025; 85610; 85730; 87086; 88300; 93005; 96361; 96374; 96375; 96376; 99284; A9270; C1769; J0690; J0780; J1100; J1170; J2250; J2405; J2704; J3010; J7030; J7120

== ENCOUNTER 2022-06-20 21:50 | Emergency (ER) | payer MEDICARE, MEDICAID, SELFPAY ==
--- NOTE | ~2022-06-20 | CT_ITS ---
Non-contrast CT scan of the Abdomen and Pelvis Clinical indication: Right flank pain Technique: 2.5 mm axial scans were obtained through the abdomen and pelvis without intravenous or or al contrast. Dose reduction technique was used on this scan by utilizing automated exposure control a nd iterative reconstruction technique. The dose-length product (DLP) was 1236.22 mGy-cm. COMPARISON: 06/09/2022 Findings: Images through the lung bases reveal no abnormalities. There is a punctate stone at the right UVJ. There is associated mild right hydroureteronephrosis and asymmetric right perinephric stranding. Tiny bubble air noted in the right renal collecting system. 8 mm nonobstructing left renal stone noted. No left ureteral stone or hydronephrosis. Diffuse fatty infiltration of liver noted. The spleen, pancreas, gallbladder, and adrenals appear nor mal. There is no aortic aneurysm. There is no evidence of bowel obstruction. Moderate fat-containing umbilical hernia noted. Normal hakeem endix. Images through the pelvis were performed. There is no evidence of ascites or lymphadenopathy. Prostat e gland and seminal vesicles are unremarkable. Urinary bladder otherwise unremarkable. Impression: Punctate right UVJ stone with mild right hydroureteronephrosis and right perinephric stranding. Single tiny bubble of air in the right renal collecting system, of uncertain clinical significance. E mphysematous pyelitis is a potential consideration. Moderate fat-containing ventral hernia. Diffuse fatty infiltration of the liver. Reviewed, dictated and finalized at [facility]. Impression: Punctate right UVJ stone with mild right hydroureteronephrosis and right perine phric stranding. Single tiny bubble of air in the right renal collecting system, of uncertain cl inical significance. Emphysematous pyelitis is a potential consideration. Moderate fat-containing ventral hernia. Diffuse fatty infiltration of the liver.
[2022-06-20 21:52] VITALS: BP 178/79; PULSE 74; RESP 19; TEMP 36.8; O2SAT 97
[2022-06-20 22:05] LABS: Basophils Absolute Auto 0.1 K/mm3 (0.0-0.1); Basophils Percent Auto 0.3 % (0.2-1.2); Hematocrit 43.7 % (42.0-52.0); Hemoglobin 14.9 g/dL (14.0-18.0); Immature Granulocyte Absolute 0.11 K/mm3 (0.00-0.031); Immature Granulocyte Percent A 0.7 % (0-0.5); Lymphocytes Absolute Auto 0.89 K/mm3 (0.9-3.2); Lymphocytes Percent Auto 5.7 % (18.3-44.2); Mean Corpuscular HGB Conc 34.1 g/dl (32-36); Mean Corpuscular Hemoglobin 28.9 pg (26-34); Mean Corpuscular Volume 84.9 fl (80-100); Mean Platelet Volume 10.2 fl (7.4-10.4); Monocytes Absolute Auto 1.1 K/mm3 (0.1-0.6); Monocytes Percent Auto 6.9 % (2.6-8.5); Neutrophils Absolute Auto 13.6 K/mm3 (1.3-6.7); Neutrophils Percent Auto 86.4 % (45.5-73.1); Platelet Count Result 240 k/mm3 (150-375); Red Blood Count 5.15 M/mm3 (4.6-6.20); Red Cell Distribution Width 13.5 % (11.5-14.5); White Blood Count 15.7 K/mm3 (4.5-10.0)
[2022-06-20 22:15] LABS: Alanine Aminotransferase 59 U/L (6-50); Albumin Level 4.6 g/dL (3.5-5.1); Alkaline Phosphatase 51 U/L (38-126); Anion Gap 8 mmol/L (8-16); Aspartate Amino Transferase 44 U/L (17-59); Bilirubin,Total 0.6 mg/dL (0.2-1.3); Blood Urea Nitrogen 19 mg/dL (9-20); Carbon Dioxide 31 mmol/L (22-30); Chloride 100 mmol/L (98-107); Estimated CRCL calculation 81 ml/min; Estimated Glomerular Filt Rate 57; Glucose 197 mg/dL (65-110); Potassium 4.3 mmol/L (3.4-5.0); Sodium 139 mmol/L (137-145)
[2022-06-20 22:32] LABS: Bacteria Urine None Seen /hpf; Non Pathogenic Casts 0-2; RBC Urine >100 /hpf (0-2); Squamous Epithelial Cell Urine None seen /hpf (Few)
[2022-06-20 22:42] LABS: Add Urine Microscopic? YES
[2022-06-20 22:44] LABS: Appearance Urine Turbid (Clear); Color Urine Red (Yellow)
[2022-06-20 22:45] LABS: Bilirubin Urine 1+ (Negative); Blood Urine 3+ (Negative); Glucose Urine UA Negative (Negative); Ketones Urine Negative (Negative); Leukocyte Esterase Ur 1+ LEU/UL (Negative); Nitrate Urine Negative (Negative); Protein Urine 2+ mg/dL (Negative); Urobilinogen Urine 0.2 mg/dL (<2.0)
[2022-06-20] MEDS: ONDANSETRON INJ 4 MG/2 ML VIAL IV PUSH (23:17)
[2022-06-20] MEDS: HYDROmorphone HCL INJ (*CRX) 1 MG/ML SYR IV PUSH (23:17)
[2022-06-20 23:19] LABS: Basophils Percent Auto 0.3 % (0.2-1.2); Eosinophils Percent Auto 0.1 % (0-4.4); Hematocrit 43.1 % (42.0-52.0); Hemoglobin 14.7 g/dL (14.0-18.0); Immature Granulocyte Absolute 0.11 K/mm3 (0.00-0.031); Immature Granulocyte Percent A 0.7 % (0-0.5); Lymphocytes Absolute Auto 0.83 K/mm3 (0.9-3.2); Lymphocytes Percent Auto 5.5 % (18.3-44.2); Mean Corpuscular HGB Conc 34.1 g/dl (32-36); Mean Corpuscular Hemoglobin 28.7 pg (26-34); Mean Corpuscular Volume 84.2 fl (80-100); Mean Platelet Volume 10.8 fl (7.4-10.4); Monocytes Absolute Auto 1.1 K/mm3 (0.1-0.6); Monocytes Percent Auto 7.3 % (2.6-8.5); Neutrophils Absolute Auto 13.1 K/mm3 (1.3-6.7); Neutrophils Percent Auto 86.1 % (45.5-73.1); Platelet Count Result 242 k/mm3 (150-375); Red Blood Count 5.12 M/mm3 (4.6-6.20); Red Cell Distribution Width 13.4 % (11.5-14.5); White Blood Count 15.2 K/mm3 (4.5-10.0)
[2022-06-20] MEDS: SODIUM CHLORIDE 0.9% IV 1,000 ML 999 ML IV CONT (23:20)
[2022-06-20 23:23] LABS: Alanine Aminotransferase 57 U/L (6-50); Albumin Level 4.6 g/dL (3.5-5.1); Alkaline Phosphatase 50 U/L (38-126); Anion Gap 9 mmol/L (8-16); Aspartate Amino Transferase 43 U/L (17-59); Bilirubin,Total 0.6 mg/dL (0.2-1.3); Blood Urea Nitrogen 19 mg/dL (9-20); Calcium 8.9 mg/dL (8.4-10.2); Carbon Dioxide 28 mmol/L (22-30); Chloride 101 mmol/L (98-107); Estimated CRCL calculation 87 ml/min; Estimated Glomerular Filt Rate > 60; Glucose 187 mg/dL (65-110); Lipase 87 U/L (23-300); Potassium 4.2 mmol/L (3.4-5.0); Sodium 138 mmol/L (137-145)
[2022-06-20 23:37] VITALS: PULSE 67; O2SAT 96
[2022-06-20 23:55] VITALS: PULSE 71; RESP 19; O2SAT 98
[2022-06-21] VITALS (17 sets, daily range): BP systolic 129–157; BP diastolic 98–109; PULSE 65–92; RESP 12–13; O2SAT 94–98
[2022-06-21] MEDS: HYDROmorphone HCL INJ (*CRX) 1 MG/ML SYR IV PUSH ×3 (00:24→02:46)
[2022-06-21] MEDS: PROCHLORPERAZINE EDISYLATE 10 MG/2 ML VIAL IV PUSH (00:59)
--- NOTE | 2022-06-21 02:30 | ED.GENADULT ---
HPI - General Adult General Chief complaint: Abdominal Pain Stated complaint: kidney stone Time Seen by Provider: 06/20/22 23:03 History of Present Illness HPI narrative: Patient is a 56-year-old gentleman who presents the emergency department with chief complaint right flank pain. The patient reports that he had a laser lithotripsy today by urology and reports that he did not have a stent placed due to his choice. Patient reports that he started having worsening pain and reports the pain got severe this evening. Patient reports that he thought they got all of the stones out of his kidney during the procedure but reports that he has been passing some small gravel like material in his urine. Related Data Home Medications Medication Instructions Recorded Confirmed budesonide-formoterol HFA 160 2 inh inhalation DAILY 04/23/19 06/14/22 mcg-4.5 mcg/actuation aerosol inhaler (Symbicort) albuterol sulfate 90 mcg/actuation 1 puff inhalation QID PRN 05/01/19 06/14/22 aerosol inhaler (Ventolin HFA) Bronchospasm glimepiride 2 mg tablet 2 mg PO DAILY 12/24/20 06/14/22 metformin 1,000 mg tablet 1,000 mg PO BID 12/24/20 06/14/22 pantoprazole 40 mg tablet,delayed 40 mg PO DAILY 12/24/20 06/14/22 release rosuvastatin 40 mg tablet 40 mg PO DAILY 12/24/20 06/14/22 warfarin 4 mg tablet 4 mg PO DAILY 12/24/20 06/14/22 losartan 100 1 tablet PO DAILY 06/14/22 06/14/22 mg-hydrochlorothiazide 25 mg tablet Allergies Allergy/AdvReac Type Severity Reaction Status Date / Time ketorolac Allergy Unknown vomiting,Rash Verified 06/20/22 10:28 see note Review of Systems Review of Systems: A 10 system review of systems was completed on the patient and is negative except for what is stated in the HPI. Nursing and ancillary documentation was reviewed. [facility] Past Medical History Medical History (Updated 06/21/22 @ 02:34 by Rinku Zapien MD) Asthma per patient Chronic back pain per patient Chronic neck pain per patient Chronic prescription opiate use pt reports [place] 7.5 mg TID for chronic pain COPD (chronic obstructive pulmonary disease) GERD (gastroesophageal reflux disease) Kidney stone Migraine headache Sleep apnea Surgical History Surgical History H/O lithotripsy Family History Family History Sibling Family history of gastrointestinal disorder Family history of chronic obstructive pulmonary disease Other Family history of kidney stones Family history of malignant neoplasm Social History Social History Smoking status: Never smoker Smoking end date: 03/26/92 Alcohol intake: never Substance use: current Substance use type: marijuana Living arrangements: with roommate(s) Gender identity (if verbalized by the patient): Male Spiritual care concerns: No Exam Narrative: GENERAL: Well-appearing, well-nourished, in moderate to severe acute pain. HEAD: Normocephalic, atraumatic. EYES: PERRLA and EOMI. ENT: Nares clear, no rhinorrhea or epistaxis. Mucous membranes moist. NECK: Supple. CHEST: Clear to auscultation. No respiratory distress. HEART: Regular rate and rhythm. No murmur heard. Normal peripheral pulses. ABDOMEN: Soft, nontender, nondistended, normal active bowel sounds. EXTREMITIES: Normal range of motion. No edema. SKIN: Warm, dry, no rash. NEURO: No focal deficits. Alert and oriented x3. PSYCH: Normal mood and affect. Course Vital Signs Vital signs: Vital Signs Temperature 36.8 C 06/20/22 21:52 Pulse Rate 74 06/20/22 21:52 Respiratory Rate 19 06/20/22 21:52 Blood Pressure 178/79 H 06/20/22 21:52 Pulse Oximetry 97 06/20/22 21:52 Oxygen Delivery Room Air 06/20/22 21:52 Temperature 36.8 C 06/20/22 21:52 Pulse Rate 74 06/20/22 21:52 R
== END 2022-06-21 03:16 | disposition home or self-care (01) ==
PROVIDERS: Emergency Provider Emergency Medicine; PCP Nurse Practitioner Family
DX: N13.2 Hydronephrosis with renal and ureteral calculous obstruction (principal); J44.9 Chronic obstructive pulmonary disease, unspecified; K21.9 Gastro-esophageal reflux disease without esophagitis; Z87.442 Personal history of urinary calculi; G47.30 Sleep apnea, unspecified; Z79.01 Long term (current) use of anticoagulants; Z79.84 Long term (current) use of oral hypoglycemic drugs; K43.9 Ventral hernia without obstruction or gangrene; K76.0 Fatty (change of) liver, not elsewhere classified; R93.421 Abnormal radiologic findings on diagnostic imaging of right kidney
CPT/HCPCS: 36415; 74176; 80053; 81001; 83690; 85025; 87086; 96361; 96374; 96375; 96376; 99284; J0780; J1170; J2405; J7030

== ENCOUNTER 2022-07-04 12:28 | Outpatient (CLI) | payer MEDICARE, MEDICAID, SELFPAY ==
--- NOTE | ~2022-07-04 | US_ITS ---
EXAMINATION: US retroperitoneal comp DATE: 07/04/2022 13:11 INDICATION: Right ureteral stone. TECHNIQUE: Multiple ultrasound grayscale images of the kidneys were obtained. COMPARISON: CT abdomen and pelvis 06/20/2022 FINDINGS: The right kidney measures 13.8 x 7.2 x 6.8 cm. The left kidney measures 13.6 x 6.4 x 4.5 cm. The kidn eys demonstrate normal parenchymal echogenicity. There is a 2.1 cm cyst in right kidney. There is no hydronephrosis. The bladder is normal. IMPRESSION: 1. Normal kidney sizes. No hydronephrosis. Reviewed, dictated and finalized at location A.
== END 2022-07-04 12:29 | disposition home or self-care (01) ==
PROVIDERS: PCP Nurse Practitioner Family; Visit Provider Urology
DX: N20.1 Calculus of ureter (principal)
CPT/HCPCS: 76770

== ENCOUNTER 2022-10-23 11:49 | Emergency (ER) | payer MEDICARE, MEDICAID, SELFPAY ==
--- NOTE | ~2022-10-23 | CT_ITS ---
EXAMINATION: CT brain wo con DATE: 10/23/2022 15:01 INDICATION: headache . TECHNIQUE: Computed tomography (CT) of the head was performed without intravenous contrast. The mA wa s adjusted according to patient size. Iterative reconstruction technique was employed. The dose-lengt h product was 605.33 mGy-cm. COMPARISON: 03/27/2020. FINDINGS: No acute intracranial hemorrhage or extra-axial fluid collection. No hydrocephalus, mass, or herniation. No acute ischemic infarct. Unremarkable dural venous sinus attenuation. No acute osseous abnormality. The aerated spaces are clear. IMPRESSION: No acute intracranial process. Reviewed, dictated and finalized at location K.
[2022-10-23 12:05] VITALS: BP 125/94; PULSE 80; RESP 16; TEMP 36.7; O2SAT 98
--- NOTE | 2022-10-23 14:51 | ED.HA ---
HPI - Headache General Chief Complaint: Headache Stated Complaint: HEADACHE Time Seen by Provider: 10/23/22 13:42 History of Present Illness HPI Narrative: 56-year-old male with a history of asthma, COPD, chronic neck and back pain, migraine headaches reports to the emergency department for headache intermittently for the past 2 days. Patient states the headache is bitemporal, and is radiating down the left side of his head and to the side of his neck. States he went to his PCP this morning and was sent to the ED if the pain did not resolve. He reports associated photophobia and phonophobia, as well as nausea. He has not taken any medications for his headache.states at times he gets headaches that last a few days, comes to the ED and received a headache cocktail with resolution. Reports this headache is like his prior. Denies vomiting, chest pain or shortness of breath, nuchal rigidity, back pain, fever, ear pain, sore throat, cough, head injury. He does report intermittent sinus congestion and states at times he thinks his headaches are from his chronic neck pain or sinus issues. Related Data Home Medications Medication Instructions Recorded Confirmed budesonide-formoterol HFA 160 2 inh inhalation DAILY 04/23/19 06/14/22 mcg-4.5 mcg/actuation aerosol inhaler (Symbicort) albuterol sulfate 90 mcg/actuation 1 puff inhalation QID PRN 05/01/19 06/14/22 aerosol inhaler (Ventolin HFA) Bronchospasm glimepiride 2 mg tablet 2 mg PO DAILY 12/24/20 06/14/22 metformin 1,000 mg tablet 1,000 mg PO BID 12/24/20 06/14/22 pantoprazole 40 mg tablet,delayed 40 mg PO DAILY 12/24/20 06/14/22 release rosuvastatin 40 mg tablet 40 mg PO DAILY 12/24/20 06/14/22 warfarin 4 mg tablet 4 mg PO DAILY 12/24/20 06/14/22 losartan 100 1 tablet PO DAILY 06/14/22 06/14/22 mg-hydrochlorothiazide 25 mg tablet Allergies Allergy/AdvReac Type Severity Reaction Status Date / Time No Known Allergies Allergy Verified 10/23/22 11:51 Review of Systems Review of Systems: CONSTITUTIONAL: Denies fever, chills EYES: Denies visual changes, redness, or discharge. ENT: See HPI CARDIOVASCULAR: Denies chest pain, palpitations, or edema. RESPIRATORY: Denies cough or dyspnea. GASTROINTESTINAL: Denies abdominal pain, nausea, vomiting, or diarrhea. GENITOURINARY: Denies dysuria or hematuria. SKIN: Denies rash or itching. MUSCULOSKELETAL: Denies back pain, joint pain, or myalgia. NEUROLOGIC: See HPI PSYCHIATRIC: Denies anxiety or depression. [facility] Past Medical History Medical History (Updated 10/23/22 @ 16:22 by Barby Montoya PA-C) Asthma per patient Chronic back pain per patient Chronic neck pain per patient Chronic prescription opiate use pt reports [place] 7.5 mg TID for chronic pain COPD (chronic obstructive pulmonary disease) GERD (gastroesophageal reflux disease) Kidney stone Migraine headache Sleep apnea Surgical History Surgical History H/O lithotripsy Family History Family History Sibling Family history of gastrointestinal disorder Family history of chronic obstructive pulmonary disease Other Family history of kidney stones Family history of malignant neoplasm Social History Social History Smoking status: Never smoker Smoking end date: 03/26/92 Alcohol intake: never Substance use: current Substance use type: marijuana Living arrangements: with roommate(s) Gender identity (if verbalized by the patient): Male Spiritual care concerns: No Exam Narrative: GENERAL: Well-appearing, in no acute distress. HEAD: Normocephalic, atraumatic. EYES: PERRLA ENT: Nares clear. Mucous membranes moist. Oropharynx without tonsillar hypertrophy exudate or other lesions. Tenderness to the bilateral maxillary sinuses. No jaw claudica
[2022-10-23] MEDS: ACETAMINOPHEN 500 MG TABLET 1000 MG PO (15:21)
[2022-10-23] MEDS: diphenhydrAMINE HCl INJ 50 MG/ML VIAL 25 MG IV PUSH (15:31)
[2022-10-23] MEDS: PROCHLORPERAZINE EDISYLATE 10 MG/2 ML VIAL IV PUSH (15:33)
[2022-10-23 15:41] LABS: Basophils Absolute Auto 0.1 K/mm3 (0.0-0.1); Basophils Percent Auto 0.8 % (0.2-1.2); Eosinophils Absolute Auto 0.4 K/mm3 (0-0.3); Eosinophils Percent Auto 4.7 % (0-4.4); Hematocrit 46.4 % (42.0-52.0); Hemoglobin 15.3 g/dL (14.0-18.0); Immature Granulocyte Absolute 0.03 K/mm3 (0.00-0.031); Immature Granulocyte Percent A 0.3 % (0-0.5); Lymphocytes Absolute Auto 1.36 K/mm3 (0.9-3.2); Lymphocytes Percent Auto 15.5 % (18.3-44.2); Mean Corpuscular Hemoglobin 28.4 pg (26-34); Mean Corpuscular Volume 86.2 fl (80-100); Mean Platelet Volume 11.2 fl (7.4-10.4); Monocytes Absolute Auto 0.6 K/mm3 (0.1-0.6); Monocytes Percent Auto 6.7 % (2.6-8.5); Neutrophils Absolute Auto 6.3 K/mm3 (1.3-6.7); Platelet Count Result 229 k/mm3 (150-375); Red Blood Count 5.38 M/mm3 (4.6-6.20); Red Cell Distribution Width 13.1 % (11.5-14.5); White Blood Count 8.8 K/mm3 (4.5-10.0)
[2022-10-23 15:43] VITALS: BP 136/90; PULSE 85; RESP 16; O2SAT 96
[2022-10-23 15:50] LABS: Anion Gap 7 mmol/L (8-16); Blood Urea Nitrogen 14 mg/dL (9-20); Calcium 9.2 mg/dL (8.4-10.2); Carbon Dioxide 29 mmol/L (22-30); Chloride 100 mmol/L (98-107); Estimated CRCL calculation 112 ml/min; Estimated Glomerular Filt Rate > 60; Glucose 283 mg/dL (65-110); Potassium 4.2 mmol/L (3.4-5.0); Sodium 136 mmol/L (137-145)
--- NOTE | 2022-10-23 16:18 | PC.NURSE ---
BAM mary at bedside at this time.
== END 2022-10-23 16:46 | disposition home or self-care (01) ==
PROVIDERS: Emergency Provider Physician Assistant; PCP Nurse Practitioner Family
DX: G44.209 Tension-type headache, unspecified, not intractable (principal); J44.9 Chronic obstructive pulmonary disease, unspecified; K21.9 Gastro-esophageal reflux disease without esophagitis; G47.30 Sleep apnea, unspecified; Z87.442 Personal history of urinary calculi; Z87.891 Personal history of nicotine dependence; Z79.84 Long term (current) use of oral hypoglycemic drugs; Z79.01 Long term (current) use of anticoagulants
CPT/HCPCS: 36415; 70450; 80048; 85025; 96374; 96375; 99284; A9270; J0780; J1200

== ENCOUNTER 2022-11-16 12:14 | Emergency (ER) | payer MEDICARE, MEDICAID, SELFPAY ==
[2022-11-16 12:16] VITALS: BP 141/117; PULSE 86; RESP 14; TEMP 36.4; O2SAT 98
--- NOTE | 2022-11-16 12:48 | PC.NURSE ---
1248-PATIENT STATES HE SMOKES MARIJUANA FOR SEVERE NECK AND BACK PAIN BUT MARIJUANA DOES NOT HELP WITH HEADACHES. PATIENT STATES THEY WON'T GIVE ME ANY PAIN MEDS FOR MY NECK AND BACK WHICH IS WHY I SMOKE POT . PATIENT WITH HX OF HYPERTENSION.
[2022-11-16 12:53] VITALS: BP 108/80; PULSE 82; RESP 20; O2SAT 96
--- NOTE | 2022-11-16 13:14 | ED.HA ---
HPI - Headache General Chief Complaint: Headache Stated Complaint: crouch Time Seen by Provider: 11/16/22 13:14 History of Present Illness HPI Narrative: Patient is a 56-year-old male with history of recurrent migraines, hypertension here with a headache. He states that the headache began yesterday, associated with light sensitivity. He notes that it alternates which side the headache is present time. Feels similar to his prior migraines. He has seen a neurologist in the past regarding his migraines and has been on several different medications, none of which seem to work. That headache is severe and seems to be worsened by his chronic neck and back pain. No nausea, vomiting. No vision changes. No numbness or weakness in arms or legs. No trauma. He last took Tylenol last night which minimally helped the symptoms. He notes that this presentation is very similar to his last presentation last month, a migraine cocktail was given and he felt much better and was discharged home. He states he followed his primary doctor since last visit, no new medications were added to his regimen. Related Data Home Medications Medication Instructions Recorded Confirmed budesonide-formoterol HFA 160 2 inh inhalation DAILY 04/23/19 06/14/22 mcg-4.5 mcg/actuation aerosol inhaler (Symbicort) albuterol sulfate 90 mcg/actuation 1 puff inhalation QID PRN 05/01/19 06/14/22 aerosol inhaler (Ventolin HFA) Bronchospasm glimepiride 2 mg tablet 2 mg PO DAILY 12/24/20 06/14/22 metformin 1,000 mg tablet 1,000 mg PO BID 12/24/20 06/14/22 pantoprazole 40 mg tablet,delayed 40 mg PO DAILY 12/24/20 06/14/22 release rosuvastatin 40 mg tablet 40 mg PO DAILY 12/24/20 06/14/22 warfarin 4 mg tablet 4 mg PO DAILY 12/24/20 06/14/22 losartan 100 1 tablet PO DAILY 06/14/22 06/14/22 mg-hydrochlorothiazide 25 mg tablet Allergies Allergy/AdvReac Type Severity Reaction Status Date / Time No Known Allergies Allergy Verified 11/16/22 12:43 Review of Systems Review of Systems: All systems reviewed & are unremarkable except as noted in HPI and below PMFSH Past Medical History Medical History (Updated 11/16/22 @ 15:05 by Alejandrina Barreto MD) Asthma per patient Chronic back pain per patient Chronic neck pain per patient Chronic prescription opiate use pt reports [place] 7.5 mg TID for chronic pain COPD (chronic obstructive pulmonary disease) GERD (gastroesophageal reflux disease) Kidney stone Migraine headache Sleep apnea Surgical History Surgical History H/O lithotripsy Family History Family History Sibling Family history of gastrointestinal disorder Family history of chronic obstructive pulmonary disease Other Family history of kidney stones Family history of malignant neoplasm Social History Social History Smoking status: Never smoker Smoking end date: 03/26/92 Alcohol intake: never Substance use: current Substance use type: marijuana Living arrangements: with roommate(s) Gender identity (if verbalized by the patient): Male Spiritual care concerns: No Exam Narrative: GENERAL: Well-appearing, well-nourished, and in no acute distress. HEAD: Normocephalic, atraumatic. EYES: PERRLA and EOMI. ENT: Nares clear. Mucous membranes moist. NECK: Supple. CHEST: Clear to auscultation. No respiratory distress. HEART: Regular rate and rhythm. Normal peripheral pulses. ABDOMEN: Soft, nontender, nondistended. EXTREMITIES: Normal range of motion. No edema. SKIN: Warm, dry, no rash. 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 PSYCH: Normal mood and affect. Course Course Emergency Course: Chart review performed. Patient was seen here for headache on 10/23
[2022-11-16] MEDS: SODIUM CHLORIDE 0.9% IV 1,000 ML 999 ML IV CONT (13:51)
[2022-11-16] MEDS: METOCLOPRAMIDE HCL INJ 10 MG/2 ML VIAL IV PUSH (13:52)
[2022-11-16] MEDS: KETOROLAC 30 MG/ML VIAL (*BKC) IV PUSH (13:54)
[2022-11-16] MEDS: diphenhydrAMINE HCl INJ 50 MG/ML VIAL 25 MG IV PUSH (13:57)
[2022-11-16] MEDS: ACETAMINOPHEN 500 MG TABLET 1000 MG PO (14:00)
[2022-11-16 14:36] VITALS: BP 111/87; PULSE 93; RESP 18; O2SAT 99
== END 2022-11-16 15:36 | disposition home or self-care (01) ==
PROVIDERS: Emergency Provider Student in an Organized Health Care Education/Training Program; PCP Nurse Practitioner Family
DX: G43.909 Migraine, unspecified, not intractable, without status migrainosus (principal); I10 Essential (primary) hypertension; J44.9 Chronic obstructive pulmonary disease, unspecified; K21.9 Gastro-esophageal reflux disease without esophagitis; G47.30 Sleep apnea, unspecified; Z87.442 Personal history of urinary calculi; Z87.891 Personal history of nicotine dependence; Z79.01 Long term (current) use of anticoagulants; Z79.84 Long term (current) use of oral hypoglycemic drugs
CPT/HCPCS: 96361; 96374; 96375; 99284; A9270; J1200; J1885; J2765; J7030

== ENCOUNTER 2023-05-01 13:34 | Outpatient (CLI) | payer MEDICARE, MEDICAID, SELFPAY ==
--- NOTE | ~2023-05-01 | MR_ITS ---
MRI of the lumbar spine Clinical History: Back pain Technique: Axial T2-weighted images, and sagittal T1-weighted, T2-weighted, and T2 fat-sat images wer e acquired. COMPARISON: 05/15/2019 Findings: No acute fracture evident. There is a 5 mm retrolisthesis of L2 over L3. There is reactive marrow signal changes about the L2-L3 disc space due to degenerative disc disease. At L1-L2, there is mild degenerative disc narrowing. There is minimal disc bulge and minimal facet ar thropathy. No central canal stenosis. There is minimal left neural foraminal narrowing. Right neural foramen preserved. At L2-L3, there is severe degenerative disc narrowing. There is disc bulge and mild to moderate facet arthropathy. There is no minimal central canal stenosis. There is moderate to severe right neural fo raminal narrowing, and mild to moderate left neural foraminal narrowing. L3-L4, there is mild disc bulge and mild to moderate facet arthropathy. No central canal stenosis. Th ere is severe left neural foraminal narrowing, and moderate right neural foraminal narrowing. At L4-L5, there is mild disc bulge and mild to moderate facet arthropathy. No central canal stenosis. There is severe left neural foraminal narrowing, and mild right neural foraminal narrowing. At L5-S1, there is minimal disc bulge and mild facet arthropathy. No central canal stenosis or defini te neural foraminal narrowing. Paravertebral soft tissues are unremarkable. Impression: [id number] degenerative spondylosis overall, as detailed above, worst at L2-L3. 5 mm retrolisthesis of L2 over L3. Reviewed, dictated and finalized at [facility]. [facility] Impression: [id number] degenerative spondylosis overall, as detailed above, worst at L2-L3. 5 mm retrolisthesis of L2 over L3.
== END 2023-05-01 13:35 | disposition home or self-care (01) ==
LOC: ANHIMG 13:40
PROVIDERS: PCP Nurse Practitioner Family; Visit Provider Nurse Practitioner Family
DX: M47.896 Other spondylosis, lumbar region (principal)
CPT/HCPCS: 72148